=== PATIENT | female | born 1930 | race Caucasian/White ===

== ENCOUNTER 2017-09-10 12:43 | Inpatient (IN) | payer OTHER ==
[~2017-09-10] VITALS: Ht 154.9 cm; Wt 77.1 kg
[~2017-09-10 12:43] MED LIST: ACETAMINOPHEN325 M1 PO; ALEVE220 MG PO; ASPIRIN CHILDRE81 MG PO; AUGMENTIN 500M500 MG PO; COZAAR 25MG TAB25 MG PO; HYDRODIURIL 112.5 M1 PO; IRON324 MG PO; LEVOTHYROXINE0.1 M1 PO; MAGOX 400241.3 MG PO; MEVACOR20 MG PO; MIRALAX17 GM PO; Senokot S PO
[2017-09-10 13:54] LABS: ABSOLUTE BASOPHIL COUNT 0 /CUMM (0.0-0.2); ABSOLUTE EOSINOPHIL COUNT 0.1 /CUMM (0.0-0.7); ABSOLUTE GRANULOCYTE CT 7.5 /CUMM (1.4-6.5); ABSOLUTE LYMPH COUNT 1.4 /CUMM (1.2-3.4); ABSOLUTE MONOCYTE COUNT 0.4 /CUMM (0.10-0.60); BASOPHIL % 0.4 % (0.0-2.0); EOSINOPHIL % 0.8 % (0-5); GRANULOCYTE % 79.6 % (42.2-75.2); HEMATOCRIT 42.2 % (37-47); MEAN CORPUSCULAR HGB 32.2 PG (27.0-31.0); MEAN CORPUSCULAR HGB CONC 33.8 G/DL (33.0-37.0); MEAN CORPUSCULAR VOLUME 95.1 FL (81.0-99.0); MEAN PLATELET VOLUME 9.4 FL (7.4-10.4); PLATELET COUNT 197 /CUMM (130-400); RBC DISTRIBUTION WIDTH 13.8 % (11.5-14.5); RED BLOOD CELL CT 4.44 /CUMM (4.20-5.40); WHITE BLOOD CELL COUNT 9.4 /CUMM (4.8-10.8)
[2017-09-10 14:00] LABS: PT 11.8 SEC (9.4-12.5); PTT 31 SEC (25-37)
--- NOTE | 2017-09-10 14:03 | RADIOLOGY REPORT ---
EXAMINATION: XR PORTABLE CHEST CLINICAL INFORMATION: Shortness of breath. COMPARISON: Chest radiograph 03/12/2010. TECHNIQUE: Portable frontal view of the chest was obtained. FINDINGS: Mild prominence of the pulmonary interstitium bilaterally may represent sequela of minimal chronic lung disease. There is minimal reticular airspace opacity in the right lung base which is nonspecific. No pleural effusion. Cardiomediastinal silhouette and pulmonary vasculature are within normal limits. No acute osseous finding. IMPRESSION: Normal right basilar airspace opacity which is nonspecific. This may be artifactual given underpenetration or possibly represent early infiltrate.
--- NOTE | 2017-09-10 14:18 | ED DYSPNEA/ASTHMA COMPLAINT ---
History of Present Illness General Chief Complaint: Dyspnea (COPD, CHF, Other) Stated Complaint: BIBA SOB Source: patient Exam Limitations: no limitations Vital Signs & Intake/Output Vital Signs & Intake/Output Vital Signs Date Time Temp Pulse Resp B/P B/P Pulse O2 O2 Flow FiO2 Mean Ox Delivery Rate 09/10 1631 96.3 106 22 173/94 95 Nasal 1.0L Cannula 09/10 1445 96.1 100 18 173/81 92 Nasal 2.0L Cannula 09/10 1343 96 Nasal 1.0L Cannula 09/10 1252 96.4 103 25 152/92 98 Room Air Room Air Allergies Coded Allergies: linaclotide (From LINZESS) (Severe, WHEEZING, SOB 09/10/17) tiotropium (UNKNOWN 09/10/17) Reconcile Medications Albuterol Sulfate (Proair Hfa) 90 MCG HFA.AER.AD 2 PUF INH Q4-6 PRN PRN RESP. (Reported) Aspirin (Ecotrin*) 81 MG TABLET.DR 1 TAB PO DAILY HEART/BLOOD (Reported) Escitalopram Oxalate 10 MG TABLET 1 TAB PO DAILY MENTAL HEALTH (Reported) Hydrochlorothiazide 12.5 MG CAPSULE 1 CAP PO DAILY DIURETIC/BP (Reported) Levothyroxine Sodium 100 MCG TABLET 1 TAB PO DAILY THYROID (Reported) Losartan Potassium 25 MG TABLET 1 TAB PO DAILY BP (Reported) Lovastatin 20 MG TABLET 1 TAB PO DAILY CHOLESTEROL (Reported) Multiple Vitamin (Multivitamins) 1 EACH TABLET 1 TAB PO DAILY SUPPLEMENT ( Reported) Triage Note: PT BIBA FROM HOME FOR INCREASED SOB SINCE EARLY THIS MORNING. PT FELT GREAT YESTERDAY, TOOK A LINZESS PILL LAST NIGHT FOR THE FIRST TIME AND SOB STARTED AROUND 0400, SUBSIDED AND THEN STARTED AGAIN APPROX 2-3 HOURS AGO AFTER PT ATE BREAKFAST. PT GIVEN DUO NEB EN ROUTE. Triage Nurses Notes Reviewed? yes Onset: Abrupt Duration: hour(s):, constant, getting worse Timing: recent history Severity: mild HPI: 86-year-old female comes into the emergency room for shortness of breath. Symptoms began around 4 AM this morning. She came in by ambulance. He denies any fever chills. Associated cough. She started a new medication yesterday. She denies any chest pain. Denies any fever or vomiting. She has been sick with some upper rest of her symptoms for a couple weeks but those symptoms have gotten better. She denies any vomiting. Denies any other associated symptoms. (Gavin Youssef) Past History Travel History Traveled to [place] past 21 day No Medical History Any Pertinent Medical History? see below for history Cardiovascular: hypertension, hyperlipidemia Respiratory: COPD Gastrointestinal: GERD Endocrine: HYPOTHYROID Blood Disorders: NONE Cancer(s): NONE History of MRSA: No History of VRE: No History of CDIFF: Yes Pneumonia Vaccine: 02/19/14 Influenza Vaccine: 02/19/14 Surgical History Surgical History: non-contributory Psychosocial History Who do you live with Patient/Self Services at Home None What is your primary language Wolof Tobacco Use: Quit >30 days ago Family History Family History, If Any: MOTHER (CVA and DM). FATHER (CHF, renal stones and gall stones). SON (DM and SD at 48 years). Hx Contributory? No (Gavin Youssef) Review of Systems Review of Systems Constitutional: Reports: see HPI. EENTM: Reports: no symptoms. Respiratory: Reports: see HPI. Cardiovascular: Reports: no symptoms. GI: Reports: no symptoms. Genitourinary: Reports: no symptoms. Musculoskeletal: Reports: no symptoms. Skin: Reports: no symptoms. Neurological/Psychological: Reports: no symptoms. Hematologic/Endocrine: Reports: no symptoms. Immunologic/Allergic: Reports: no symptoms. All Other Systems: Reviewed and Negative (Gavin Youssef) Physical Exam Physical Exam General Appearance: alert, awake, moderate distress Head: atraumatic Eyes: Bilateral: normal appearance. Ears, Nose, Throat: normal ENT inspection, hearing grossly normal Neck: normal inspection Respiratory: decreased breath sounds, rhonchi, wheezing Cardiovascular: regular rate/rhythm, tachycardia Gastrointestinal: soft Extremities: normal inspection Neurologic/Psych: awake, alert, normal gait, normal mood/affect Skin: intact, normal color Core Measures ACS in differential dx? No CVA/TIA Diagnosis No Sepsis Present: No Sepsis Focused Exam Completed? No (Gavin Youssef) Progress Differential Diagnosis: asthma, AMI, bronchitis, costochondritis, CHF, COPD, musculoskeletal pain, pericarditis, pulmonary embolism, pneumonia, pneumothorax, rib fracture, unstable angina Plan of Care: Orders Procedure Date/time Status Heart Healthy Diet 09/11 B Active Regular Diet 09/10 D Complete ED Holding Orders 09/10 1611 Active Vital Signs 09/10 1611 Active Code Status 09/10 1611 Active Patient Data 09/10 1609 Active Admit to inpatient 09/10 1607 Active BLOOD CULTURE 09/10 1419 Active Telemetry/Youth Counselor 09/10 1258 Active TROPONIN LEVEL 09/10 1258 Complete PARTIAL THROMBOPLASTIN TIME 09/10 1258 Complete PROTHROMBIN TIME 09/10 1258 Complete COMPREHENSIVE METABOLIC PANEL 09/10 1258 Complete CBC WITHOUT DIFFERENTIAL 09/10 1258 Complete B-TYPE NATRIURETIC PEP (BNP) 09/10 1258 Complete EKG 09/10 1258 Active Intake & Output 09/10 1249 Active Current Medications Sig/Yohannes Start time Last Medication Dose Stop Time Status Admin Magnesium Sulfate 1 GM ONCE ONE 09/10 1345 AC 09/10 (Mag Sulfate in D5) 09/10 1744 1402 Dextrose/Water 100 ML (D5W) Laboratory Tests 09/10/17 1340: Anion Gap 7, Estimated GFR > 60, BUN/Creatinine Ratio 44.0 H, Glucose 107 H, Calcium 9.2, Total Bilirubin 0.9, AST 28, ALT 26, Alkaline Phosphatase 59, Troponin I < 0.01, Kqa-A-Zgwcbbqbzsv Pept 552 H, Total Protein 7.2, Albumin 3.9 , Globulin 3.3, Albumin/Globulin Ratio 1.2, PT 11.8, INR 1.08, APTT 31, CBC w Diff NO MAN DIFF REQ, RBC 4.44, MCV 95.1, MCH 32.2 H, MCHC 33.8, RDW 13.8, MPV 9.4, Gran % 79.6 H, Lymphocytes % 15.0 L, Monocytes % 4.2, Eosinophils % 0.8, Basophils % 0.4, Absolute Granulocytes 7.5 H, Absolute Lymphocytes 1.4, Absolute Monocytes 0.4, Absolute Eosinophils 0.1, Absolute Basophils 0 Microbiology 09/10 1442 BLOOD: Blood Culture - RECD 09/10 1420 BLOOD: Blood Culture - RECD Diagnostic Imaging: Viewed by Me: Radiology Read. Discussed w/RAD: Radiology Read. Radiology Impression: PATIENT: SEDRICK EM PRESENT AGE: 86 PATIENT ACCOUNT NO: [id number] : [birth year] LOCATION: [facility] ORDERING PHYSICIAN: Gavin NUR SERVICE DATE: 09/10/17-1604 EXAM TYPE: RAD - XRY-PORTABLE CHEST XRAY EXAMINATION: XR PORTABLE CHEST CLINICAL INFORMATION: Shortness of breath. COMPARISON: Chest radiograph 03/12/2010. TECHNIQUE: Portable frontal view of the chest was obtained. FINDINGS: Mild prominence of the pulmonary interstitium bilaterally may represent sequela of minimal chronic lung disease. There is minimal reticular airspace opacity in the right lung base which is nonspecific. No pleural effusion. Cardiomediastinal silhouette and pulmonary vasculature are within normal limits. No acute osseous finding. IMPRESSION: Normal right basilar airspace opacity which is nonspecific. This may be artifactual given underpenetration or possibly represent early infiltrate. DICTATED BY: Domo Allred MD DATE/TIME DICTATED:09/10/171357 ROW BOSS HOEING:JOSE ENRIQUE DATE/TIME TRANSCRIBED:09/10/171357 CONFIDENTIAL, DO NOT COPY WITHOUT APPROPRIATE AUTHORIZATION. <Electronically signed in Other Vendor System> SIGNED BY: Domo Allred MD 09/10/17 1400 Initial ED EKG: normal sinus rhythm, rate (106) (Gavin Youssef) Departure Departure Disposition: STILL A PATIENT Condition: Stable Clinical Impression Primary Impression: Pneumonia Secondary Impressions: Bronchitis Referrals: Saba HATFIELD,Alex Barrientos (PCP/Family) Departure Forms: Customer Survey General Discharge Information Admission Note Spoke With: Wilver Mckinnon MD Documentation of Exam: Documentation of any treatments & extenuating circumstances including Concerns Regarding Discharge (functional status, medication knowledge or non-compliance, living conditions, etc.) that warrant an admission rather than observation: Patient will require IV steroids. Supplemental oxygen. Respiratory care. Breathing treatments. Patient was very tachypneic and short of breath upon arrival. Questionable pneumonia. IV antibiotics. Medically not safe for discharge. (Gavin Youssef) Admission Note Documentation of Exam: Documentation of any treatments & extenuating circumstances including Concerns Regarding Discharge (functional status, medication knowledge or non-compliance, living conditions, etc.) that warrant an admission rather than observation: PA/ACADEMIC SUPPORT SPECIALIST Co-Sign Statement Statement: ED Attending supervision documentation- [X] I saw and evaluated the patient. I have also reviewed all the pertinent lab results and diagnostic results. I agree with the findings and the plan of care as documented in the PA's/ACADEMIC SUPPORT SPECIALIST's documentation. [X] I have reviewed the ED Record and agree with the PA's/ACADEMIC SUPPORT SPECIALIST's documentation. [] Additions or exceptions (if any) to the PAs/ACADEMIC SUPPORT SPECIALIST's note and plan are summarized below: [Patient appears in respiratory distress. Questionable pneumonia seen on chest x-ray. Patient will need IV antibiotics, nebulizers, pulmonary consultation] (Alvarado HATFIELD,Francisco Adair) Critical Care Note Critical Care Note Critical Care Time: non-applicable (Jorge NUR,Gavin)
[2017-09-10] MEDS ORDERED: PROAIR HFA8.5 GM INH (16:13)
[2017-09-10] MEDS ORDERED: LOVASTATIN20 M1 PO (16:13)
[2017-09-10] MEDS ORDERED: LEVOTHYROXINE100 MC1 PO (16:13)
[2017-09-10] MEDS ORDERED: MULTIVITAMINS1 EAC9 PO (16:14)
[2017-09-10] MEDS ORDERED: ASPIRIN EC81 M1 PO (16:14)
[2017-09-10] MEDS ORDERED: ESCITALOPRAM OX10 MG PO (16:14)
[2017-09-10] MEDS ORDERED: LOSARTAN POTASS25 M1 PO (16:14)
[2017-09-10] MEDS ORDERED: HYDROCHLOROTH12.5 M3 PO (16:14)
--- NOTE | 2017-09-10 16:20 | History & Physical ---
Christopher HATFIELD,[facility] 09/10/17 1619: General Information and HPI Statement: I have seen and personally examined SEDRICK EM and documented this H&P. The patient is a 86 year old F who presented with a patient stated chief complaint of [SOB]. History of Present Illness: 86-year-old female with a past medical history of hypertension, hyperlipidemia, COPD, GERD, hypothyroidism, and IBS presenting for shortness breath. The patient's son states that the symptoms started several weeks ago when the patient had signs of a upper respiratory infection. The son states that the patient went to the PCP on the and was given a Z-Harish and poor air. He states that the symptoms occurred 3-4 days for the PCP visit. He states that she got a flu test which was negative and she was diagnosed with a cold. He states that the patient was fine yesterday. States that the patient went out shopping and had dinner family without any issues. The son states that the symptoms started yesterday when the patient was started on a trial of Lanzess for constipation. He states that the patient had several bowel movements. He states that after taking the medication the patient began having symptoms of GERD which then led to an acute reemergence of her shortness of breath. The shortness of breath is associated with cough. The patient denies any fevers or chills. Allergies/Medications Allergies: Coded Allergies: linaclotide (From LINZESS) (Severe, WHEEZING, SOB 09/10/17) tiotropium (UNKNOWN 09/10/17) Home Med list Albuterol Sulfate (Proair Hfa) 90 MCG HFA.AER.AD 2 PUF INH Q4-6 PRN PRN RESP. (Reported) Aspirin (Ecotrin*) 81 MG TABLET.DR 1 TAB PO DAILY HEART/BLOOD (Reported) Escitalopram Oxalate 10 MG TABLET 1 TAB PO DAILY MENTAL HEALTH (Reported) Hydrochlorothiazide 12.5 MG CAPSULE 1 CAP PO DAILY DIURETIC/BP (Reported) Levothyroxine Sodium 100 MCG TABLET 1 TAB PO DAILY THYROID (Reported) Losartan Potassium 25 MG TABLET 1 TAB PO DAILY BP (Reported) Lovastatin 20 MG TABLET 1 TAB PO DAILY CHOLESTEROL (Reported) Multiple Vitamin (Multivitamins) 1 EACH TABLET 1 TAB PO DAILY SUPPLEMENT ( Reported) Past History Travel History Traveled to [place] past 21 day No Medical History Cardiovascular: hypertension, hyperlipidemia Respiratory: COPD Gastrointestinal: GERD Endocrine: HYPOTHYROID Blood Disorders: NONE Cancer(s): NONE History of MRSA: No History of VRE: No History of CDIFF: Yes Pneumonia Vaccine: 02/19/14 Influenza Vaccine: 02/19/14 Surgical History Surgical History: non-contributory Past Family/Social History Family History Relations & Conditions if any MOTHER (CVA and DM). FATHER (CHF, renal stones and gall stones). SON (DM and [place] at 48 years). Psychosocial History Services at Home: None Review of Systems Review of Systems Constitutional: Reports: see HPI. Exam & Diagnostic Data Last 24 Hrs of Vital Signs/I&O Vital Signs Date Time Temp Pulse Resp B/P B/P Pulse O2 O2 Flow FiO2 Mean Ox Delivery Rate 09/10 2246 97.8 90 20 148/50 96 Nasal Cannula 09/10 2057 Nasal 2.0L Cannula 09/10 1835 98 Nasal 2.0L Cannula 09/10 1754 98.6 100 22 150/80 96 Nasal Cannula 09/10 1631 96.3 106 22 173/94 95 Nasal 1.0L Cannula 09/10 1445 96.1 100 18 173/81 92 Nasal 2.0L Cannula 09/10 1343 96 Nasal 1.0L Cannula 09/10 1252 96.4 103 25 152/92 98 Room Air Room Air Intake & Output 09/10 1600 09/10 0800 09/10 0000 Intake Total 0 Output Total Balance 0 Intake, Oral 0 Physical Exam General Appearance Alert, Oriented X3, Cooperative, No Acute Distress, appears fatigued HEENT reddish/purplish ?circular pattern around eyes b/l Cardiovascular Regular Rate, Normal S1, Normal S2 Lungs decreased breath sounds bilaterally. Inspiratory crackles bilaterally in mid and lower base. Abdomen Normal Bowel Sounds, Soft, No Tenderness Extremities 2+ radial pulses Last 24 Hrs of Labs/Pawan: Laboratory Tests 09/10/17 2010: Troponin I 0.05 09/10/17 2010: Lactic Acid 1.5 09/10/17 1340: Anion Gap 7, Estimated GFR > 60, BUN/Creatinine Ratio 44.0 H, Glucose 107 H, Calcium 9.2, Total Bilirubin 0.9, AST 28, ALT 26, Alkaline Phosphatase 59, Troponin I < 0.01, Pul-E-Vliumoopqnz Pept 552 H, Total Protein 7.2, Albumin 3.9 , Globulin 3.3, Albumin/Globulin Ratio 1.2, PT 11.8, INR 1.08, APTT 31, CBC w Diff NO MAN DIFF REQ, RBC 4.44, MCV 95.1, MCH 32.2 H, MCHC 33.8, RDW 13.8, MPV 9.4, Gran % 79.6 H, Lymphocytes % 15.0 L, Monocytes % 4.2, Eosinophils % 0.8, Basophils % 0.4, Absolute Granulocytes 7.5 H, Absolute Lymphocytes 1.4, Absolute Monocytes 0.4, Absolute Eosinophils 0.1, Absolute Basophils 0 Microbiology 09/10 1900 URINE ROUT: Legionella Antigen - COLB 09/10 1900 URINE ROUT: Streptococcus pneumoniae Antigen (M - COLB 09/10 144 BLOOD: Blood Culture - RECD 09/11 1419 BLOOD: Blood Culture - RECD Assessment/Plan Assessment: 86-year-old female with a past medical history of hypertension, hyperlipidemia, COPD, GERD, hypothyroidism, and IBS presenting for shortness breath. #Shortness of breath secondary to pneumonia and bronchitis/COPD Patient received ceftriaxone and azithromycin in the ED. Also received IV Solu-Medrol in the ED Chest x-ray:right basilar airspace opacity which is nonspecific. This may be artifactual given underpenetration or possibly represent early infiltrate WBC 9.4 Lactic acid 1.5 Troponin 0.01, .05 ProBNP 552 -f/u trop ekg x3 -f/u CT chest -f/u UA and urinary antigens -Continue ceftriaxone and azithromycin -Continue TRC nebs -Consider echo if no improvement #HTN -cont losartan, hydro-chlorothiazide, #Chronic medical problems -Continue aspirin, levothyroxine, escitalopram, Protonix, atorvastatin #FULL CODE #DVT prophylaxisLovenox As Ranked By This Provider Problem List: 1. Bronchitis 2. Pneumonia Core Measures/Misc (02/05) Acute Coronary Syndrome ACS Diagnosis: No Congestive Heart Failure Congestive Heart Failure Diagnosis No Cerebrovascular Accident CVA/TIA Diagnosis: No VTE (View Protocol) VTE Risk Factors Acute Medical Illness No Mechanical VTE Prophylaxis d/t Other No VTE Pharm Prophylaxis d/t NA PharmProphylax ordered Sepsis (View protocol) Sepsis Present: No Wilver Mckinnon 09/10/17 1716: Attending MD Review Statement Attending Statement Attending MD Statement: examined this patient, discuss w/resident/PA/DEVELOPMENT INTERN, agreed w/resident/PA/DEVELOPMENT INTERN, discussed with family, reviewed EMR data (avail), discussed with nursing, discussed with case mgmt, reviewed images, amended to note Attending Assessment/Plan: 86-year-old female comes for shortness of breath BIBEMS. Symptoms started 4 AM this morning. She has been sick with some upper rest of her symptoms for a couple weeks. She denies any chest pain. Denies any fever or vomiting. Patient is on oxygen supplementation. Vitals with borderline tachycardia and elevated bp. Labs with probnp 500, Cr wnl, WBC 9, h/h stable. LFTs wnl. Trop x1 negative Chest xray with early inflitrates. Patient being admitted for community acquired pneumonia and respiratroy insufficiency. Patient started on iv antibiotics, oxygen supplementaiton, obtain ct chest, TRCs. Serial cardiac enzymes. Lactic acid. Consider ECHO if no improvement. Resume bp meds to control bp. gi/dvt prophyalxis [facility]135: Resident Review Statement Resident Statement: examined this patient, discussed with leadership program intern, agreed with leadership program intern Other Findings: The patient is an 86-year-old woman with a past medical history of hypertension, hyperlipidemia, COPD diagnosed in the 1960s, GERD, hypothyroidism, and IBS presenting with sudden onset of shortness breath since last night. Prior to current symptoms patient had an URTI 2 weeks ago and was treated with a z pack and proair inhaler on 09/01 by her PCP with negative flu test. Her symptoms improved but she developed sudden onset of shortness of breath last night after taking linzess for constipation. She also notes severe wheezing. She denied fever, chills, chest pain, palpitations, nausea or vomitting. Her shortness of breath improved after nebulizer treatment in the ER. Physical exam significant for bilateral scattered wheeze and reduced air entry in chest. No crackles heard. Labs show normal white count but her chest x ray shows right lung base questionable consolidation. Overall, her symptoms are consistent with an atypical or developing pneumonia or acute bronchitis. Problem list 1. Shortness of breath secondary to probable atypical pneumonia 2. Acute bronchitis 3. Hypertension 4. Hypothyroidism Plan * Admit to general medicine * Continue IV ceftriaxone 1 g daily and IV azithromycin 500 mg daily * Follow up blood cultures * Sputum culture * Urine legionella and strep pneumo antigen * Would pursue a non contrast CT chest to investigate early pneumonia changes * Monitor vital signs closely * TRC evaluation for nebulizer therapy (Note patient had a reaction to spiriva in the past) * Consider continuing IV solumedrol in the AM. Patient received 125 mg once in the ER. * Serial EKG and troponin to rule out ACS * If no improvement in symptoms will consider echocardiogram and cardiology evaluation * Continue home meds for HTN with losartan and HCTZ * Continue synthroid 0.1 mg daily * GI prophylaxis with IV protonix 40 mg daily * DVT prophylaxis with SC lovenox * Patient is full code
[2017-09-10 17:54] VITALS: BP 150/80
[2017-09-10 22:46] VITALS: BP 148/50
[2017-09-11 02:00] VITALS: BP 128/80
[2017-09-11 02:32] LABS: ABSOLUTE BASOPHIL COUNT 0 /CUMM (0.0-0.2); ABSOLUTE EOSINOPHIL COUNT 0 /CUMM (0.0-0.7); ABSOLUTE GRANULOCYTE CT 5.7 /CUMM (1.4-6.5); ABSOLUTE LYMPH COUNT 0.7 /CUMM (1.2-3.4); ABSOLUTE MONOCYTE COUNT 0.3 /CUMM (0.10-0.60); BASOPHIL % 0.7 % (0.0-2.0); EOSINOPHIL % 0 % (0-5); HEMATOCRIT 39.3 % (37-47); MEAN CORPUSCULAR HGB 32.1 PG (27.0-31.0); MEAN CORPUSCULAR HGB CONC 33.8 G/DL (33.0-37.0); MEAN PLATELET VOLUME 9.5 FL (7.4-10.4); PLATELET COUNT 190 /CUMM (130-400); RBC DISTRIBUTION WIDTH 13.4 % (11.5-14.5); RED BLOOD CELL CT 4.14 /CUMM (4.20-5.40); WHITE BLOOD CELL COUNT 6.8 /CUMM (4.8-10.8)
[2017-09-11 06:32] VITALS: BP 150/88
--- NOTE | 2017-09-11 08:13 | CT SCAN REPORT ---
EXAMINATION: CT CHEST WITHOUT CONTRAST CLINICAL INFORMATION: Cough, wheeze and sudden shortness of breath. COMPARISON: Chest x-ray same day and CT abdomen pelvis 06/08/2014 TECHNIQUE: Multidetector volumetric CT imaging of the chest was done. Axial MIP volume rendering provided. Sagittal and coronal reformatted images were obtained. DLP: 394 mGy-cm FINDINGS: The heart is normal in size. Coronary artery calcifications are present. No pericardial effusion. Thoracic aorta is normal in caliber and demonstrates mild to moderate atherosclerotic disease. Central airways are patent. Lungs are well aerated. No lobar consolidation. Similar scarring of the right middle lobe and right lung base. Mild emphysematous changes with a suspected approximately 4.5 cm bleb within the anterior right middle lobe which was incompletely visualized on CT abdomen pelvis imaging from May 2014. A few punctate nodules of the lung bases are stable. Visualized portion of the upper abdomen are grossly unremarkable. Diffuse degenerative changes of the spine. IMPRESSION: 1. No lobar consolidation or pleural effusion. 2. Mild emphysema with prominent anterior right middle lobe bleb.
--- NOTE | 2017-09-11 10:16 | PN- Housestaff ---
Subjective Follow-up For: Pneumonia COPD Subjective: No acute events overnight. Patient states that she had some shortness of breath which improved after nebulizers this morning. Review of Systems Constitutional: Reports: see HPI. Objective Last 24 Hrs of Vital Signs/I&O Vital Signs Date Time Temp Pulse Resp B/P B/P Pulse O2 O2 Flow FiO2 Mean Ox Delivery Rate 09/11 1011 98 Nasal 2.0L Cannula 09/11 0827 98.4 98 22 150/88 09/11 0800 98 Nasal 2.0L Cannula 09/11 0632 98.4 98 22 150/88 94 Nasal Cannula 09/11 0542 97 Nasal 2.0L Cannula 09/11 0200 98.1 74 18 128/80 98 Room Air 09/11 0000 Nasal 2.0L Cannula 09/10 2246 97.8 90 20 148/50 96 Nasal Cannula 09/10 2057 Nasal 2.0L Cannula 09/10 1835 98 Nasal 2.0L Cannula 09/10 1754 98.6 100 22 150/80 96 Nasal Cannula 09/10 1631 96.3 106 22 173/94 95 Nasal 1.0L Cannula 09/10 1445 96.1 100 18 173/81 92 Nasal 2.0L Cannula 09/10 1343 96 Nasal 1.0L Cannula Intake & Output 09/11 1600 09/11 0800 09/11 0000 Intake Total 100 220 Output Total 100 Balance -100 100 220 Intake, IV 20 Intake, Oral 100 200 Number 0 Bowel Movements Output, Urine 100 Patient 171 lb 180 lb Weight Weight Bed scale Reported by Patient Measurement Method Physical Exam General Appearance: Alert, Oriented X3, Cooperative Cardiovascular: Normal S1, Normal S2, tachycardia Lungs: decreased breath sounds, inspiratory wheezing Abdomen: Normal Bowel Sounds, Soft, No Tenderness Vascular: 2+ radial pulses Current Medications: Current Medications Sig/Yohannes Start time Last Medication Dose Route Stop Time Status Admin Albuterol Sulfate 3 ML TID 09/11 899 AC 09/11 INH 0950 Aspirin Buffered 81 MG DAILY 09/11 0900 AC 09/11 PO 0827 Atorvastatin Calcium 5 MG 1700 09/10 1800 AC 09/10 PO 1937 Azithromycin 500 MG DAILY@1530 09/11 1530 AC Sodium Chloride 250 ML IV Azithromycin 0 .STK-MED ONE 09/10 1713 DC PO Azithromycin 500 MG ONCE ONE 09/10 1415 DC 09/10 Dextrose/Water 250 ML IV 09/10 1514 1546 Ceftriaxone Sodium 1,000 MG DAILY@1515 09/11 1515 AC IV Ceftriaxone Sodium 0 .STK-MED ONE 09/10 1459 DC .ROUTE Ceftriaxone Sodium 1,000 MG ONCE ONE 09/10 1415 DC 09/10 IV 09/10 1416 1514 Diphenhydramine HCl 0 .STK-MED ONE 09/10 1311 DC .ROUTE Enoxaparin Sodium 40 MG DAILY 09/10 1814 AC 09/11 SC 0827 Escitalopram Oxalate 10 MG AT BEDTIME 09/10 2100 AC 09/10 PO 2144 Hydrochlorothiazide 12.5 MG DAILY 09/11 0900 AC 09/11 PO 0826 Levothyroxine Sodium 0.1 MG DAILY AC 09/11 0700 AC 09/11 PO 0640 Losartan Potassium 25 MG DAILY 09/11 0900 AC 09/11 PO 0827 Magnesium Sulfate 1 GM ONCE ONE 09/10 1345 DC 09/10 Dextrose/Water 100 ML IV 09/10 1744 1402 Methylprednisolone 40 MG Q12 09/11 0900 AC 09/11 IV 1016 Methylprednisolone 0 .STK-MED ONE 09/10 1312 DC .ROUTE Metronidazole 0 .STK-MED ONE 09/10 1713 DC PO Multivitamins 1 TAB DAILY 09/11 0900 AC 09/11 Therapeutic PO 0826 Omeprazole 20 MG DAILY AC 09/10 1830 DC PO Pantoprazole Sodium 40 MG DAILY 09/10 1945 AC 09/11 IV 0827 Last 24 Hrs of Lab/Pawan Results Last 24 Hrs of Labs/Mics: Laboratory Tests 09/11/17 0925: Troponin I 0.05 09/11/17 0920: Urine Color YEL, Urine Clarity HAZY H, Urine pH 6.0, Ur Specific [place] 1.025, Urine Protein 30 H, Urine Ketones NEG, Urine Nitrite NEG, Urine Bilirubin NEG, Urine Urobilinogen 0.2, Ur Leukocyte Esterase NEG, Ur Microscopic SEDIMENT EXAMINED, Urine RBC 1-3, Urine WBC 3-5 H, Ur Epithelial Cells PACKD H, Urine Bacteria RARE H, Hyaline Casts 1-3 H, Granular Casts 1-3 H, Urine Mucus FEW, Urine Hemoglobin NEG, Urine Glucose NEG 09/11/17 0200: Anion Gap 6, Estimated GFR > 60, BUN/Creatinine Ratio 30.0 H, Troponin I 0.06, CBC w Diff MAN DIFF ORDERED, RBC 4.14 L, MCV 95.0, MCH 32.1 H, MCHC 33.8, RDW 13.4, MPV 9.5, Gran % 85.0 H, Lymphocytes % 9.7 L, Monocytes % 4.6, Eosinophils % 0, Basophils % 0.7, Absolute Granulocytes 5.7, Segmented Neutrophils 78 H, Band Neutrophils 3, Absolute Lymphocytes 0.7 L, Lymphocytes 16 L, Monocytes 3, Absolute Monocytes 0.3, Absolute Eosinophils 0, Absolute Basophils 0, Platelet Estimate ADEQUATE, Anisocytosis 1+, Stomatocytes 1+ 09/10/17 2010: Troponin I 0.05 09/10/17 2010: Lactic Acid 1.5 09/10/17 1340: Anion Gap 7, Estimated GFR > 60, BUN/Creatinine Ratio 44.0 H, Glucose 107 H, Calcium 9.2, Total Bilirubin 0.9, AST 28, ALT 26, Alkaline Phosphatase 59, Troponin I < 0.01, [id number]-[id number] Pept 552 H, Total Protein 7.2, Albumin 3.9 , Globulin 3.3, Albumin/Globulin Ratio 1.2, PT 11.8, INR 1.08, APTT 31, CBC w Diff NO MAN DIFF REQ, RBC 4.44, MCV 95.1, MCH 32.2 H, MCHC 33.8, RDW 13.8, MPV 9.4, Gran % 79.6 H, Lymphocytes % 15.0 L, Monocytes % 4.2, Eosinophils % 0.8, Basophils % 0.4, Absolute Granulocytes 7.5 H, Absolute Lymphocytes 1.4, Absolute Monocytes 0.4, Absolute Eosinophils 0.1, Absolute Basophils 0 Microbiology 09/12 919 URINE ROUT: Legionella Antigen - COMP 09/12 919 URINE ROUT: Streptococcus pneumoniae Antigen (M - COMP 09/11 07 LOWER RESP: Respiratory Culture - COLB 09/11 07 LOWER RESP: Gram Stain - COLB 09/10 1442 BLOOD: Blood Culture - RECD 09/10 142 BLOOD: Blood Culture - RECD Assessment/Plan Assessment: 86-year-old female with a past medical history of hypertension, hyperlipidemia, COPD, GERD, hypothyroidism, and IBS presenting for shortness breath. #Shortness of breath secondary to pneumonia and bronchitis/COPD Patient received ceftriaxone and azithromycin, IV Solu-Medrol in ED Chest x-ray:right basilar airspace opacity which is nonspecific. may be artifactual or possibly represent early infiltrate WBC 9.4 -> 6.8 Lactic acid 1.5 Troponin 0.01, .05, .06, .05 ProBNP 552 flu, urinary antigens negative CT chest: emphysema with prominent anterior right middle lobe bleb -f/u echo -Follow up speech and swallow eval for possible aspiration and history of dysphasia -Continue IV steroids every 12 -Start chest PT -Continue ceftriaxone and azithromycin. STOP if cx negative tomorrow -Continue TRC nebs -Consider echo if no improvement #HTN -cont losartan, hydro-chlorothiazide, #Chronic medical problems -Continue aspirin, levothyroxine, escitalopram, Protonix, atorvastatin #FULL CODE #DVT prophylaxisLovenox Problem List: 1. Pneumonia 2. Bronchitis Pain Ratin Pain Location: none Pain Goal: Pain 4 or less Pain Plan: pathway Tomorrow's Labs & Rationales: none
--- NOTE | 2017-09-11 11:06 | PN- Att Addend ---
Attending Addendum Attending Brief Note Patient seen and examined, feels better overall. Breathing has improved. Did mention that she has some difficulty swallowing. Vital Signs Date Time Temp Pulse Resp B/P B/P Pulse O2 O2 Flow FiO2 Mean Ox Delivery Rate 09/11 1011 98 Nasal 2.0L Cannula 09/11 0827 98.4 98 22 150/88 09/11 0800 98 Nasal 2.0L Cannula 09/11 0632 98.4 98 22 150/88 94 Nasal Cannula 09/11 0542 97 Nasal 2.0L Cannula 09/11 0200 98.1 74 18 128/80 98 Room Air 09/11 0000 Nasal 2.0L Cannula 09/10 2246 97.8 90 20 148/50 96 Nasal Cannula 09/10 2057 Nasal 2.0L Cannula 09/10 1835 98 Nasal 2.0L Cannula 09/10 1754 98.6 100 22 150/80 96 Nasal Cannula 09/10 1631 96.3 106 22 173/94 95 Nasal 1.0L Cannula 09/10 1445 96.1 100 18 173/81 92 Nasal 2.0L Cannula 09/10 1343 96 Nasal 1.0L Cannula 09/10 1252 96.4 103 25 152/92 98 Room Air Room Air on exam; aox3, nad. cv: s1,s2, rrr resp; decreased bs overall. abd; soft, nt, bs+ ext; no edema Laboratory Tests 09/11 09/11 0925 0920 Chemistry Troponin I Pending Urines Urine Color (YEL,AMB,STR) YEL Urine Clarity (CLEAR) HAZY H Urine pH (5.0 - 8.0) 6.0 Ur Specific [place] (1.001 - 1.035) 1.025 Urine Protein (NEG,<30 MG/DL) 30 H Urine Ketones (NEG) NEG Urine Nitrite (NEG) NEG Urine Bilirubin (NEG) NEG Urine Urobilinogen (0.1 - 1.0 EU/dl) 0.2 Ur Leukocyte Esterase (NEG) NEG Ur Microscopic SEDIMENT EXAMINED Urine RBC (0 - 5 /HPF) 1-3 Urine WBC (0 - 2 /HPF) 3-5 H Ur Epithelial Cells (NONE,FEW) PACKD H Urine Bacteria (NEG/NONE) RARE H Hyaline Casts (0/LPF) 1-3 H Granular Casts (NONE /LPF) 1-3 H Urine Mucus (FEW,NONE) FEW Urine Hemoglobin (NEG) NEG Urine Glucose (N MG/DL) NEG 09/11 09/10 09/10 0200 2009 2009 Chemistry Sodium (137 - 145 mmol/L) 138 Potassium (3.5 - 5.1 mmol/L) 3.8 Chloride (98 - 107 mmol/L) 97 L Carbon Dioxide (22 - 30 mmol/L) 34 H Anion Gap (5 - 16) 6 BUN (7 - 17 mg/dL) 15 Creatinine (0.5 - 1.0 mg/dL) 0.5 Estimated GFR (>60 ml/min) > 60 BUN/Creatinine Ratio (7 - 25 %) 30.0 H Lactic Acid (0.7 - 2.1 mmol/L) 1.5 Troponin I (< 0.11 ng/ml) 0.06 0.05 Hematology CBC w Diff MAN DIFF ORDERED WBC (4.8 - 10.8 /CUMM) 6.8 RBC (4.20 - 5.40 /CUMM) 4.14 L Hgb (12.0 - 16.0 G/DL) 13.3 Hct (37 - 47 %) 39.3 MCV (81.0 - 99.0 FL) 95.0 MCH (27.0 - 31.0 PG) 32.1 H MCHC (33.0 - 37.0 G/DL) 33.8 RDW (11.5 - 14.5 %) 13.4 Plt Count (130 - 400 /CUMM) 190 MPV (7.4 - 10.4 FL) 9.5 Gran % (42.2 - 75.2 %) 85.0 H Lymphocytes % (20.5 - 51.1 %) 9.7 L Monocytes % (1.7 - 9.3 %) 4.6 Eosinophils % (0 - 5 %) 0 Basophils % (0.0 - 2.0 %) 0.7 Absolute Granulocytes (1.4 - 6.5 /CUMM) 5.7 Segmented Neutrophils (42.2 - 75.2 %) 78 H Band Neutrophils (0.0 - 5.0 %) 3 Absolute Lymphocytes (1.2 - 3.4 /CUMM) 0.7 L Lymphocytes (20.5 - 51.1 %) 16 L Monocytes (1.7 - 9.3 %) 3 Absolute Monocytes (0.10 - 0.60 /CUMM) 0.3 Absolute Eosinophils (0.0 - 0.7 /CUMM) 0 Absolute Basophils (0.0 - 0.2 /CUMM) 0 Platelet Estimate (ADEQUATE) ADEQUATE Anisocytosis 1+ Stomatocytes 1+ 09/10 1340 Chemistry Sodium (137 - 145 mmol/L) 137 Potassium (3.5 - 5.1 mmol/L) 3.9 Chloride (98 - 107 mmol/L) 97 L Carbon Dioxide (22 - 30 mmol/L) 34 H Anion Gap (5 - 16) 7 BUN (7 - 17 mg/dL) 22 H Creatinine (0.5 - 1.0 mg/dL) 0.5 Estimated GFR (>60 ml/min) > 60 BUN/Creatinine Ratio (7 - 25 %) 44.0 H Glucose (65 - 99 mg/dL) 107 H Calcium (8.4 - 10.2 mg/dL) 9.2 Total Bilirubin (0.2 - 1.3 mg/dL) 0.9 AST (14 - 36 U/L) 28 ALT (9 - 52 U/L) 26 Alkaline Phosphatase (<127 U/L) 59 Troponin I (< 0.11 ng/ml) < 0.01 [id number] Pept (<125 pg/mL) 552 H Total Protein (6.3 - 8.2 g/dL) 7.2 Albumin (3.5 - 5.0 g/dL) 3.9 Globulin (1.9 - 4.2 gm/dL) 3.3 Albumin/Globulin Ratio (1.1 - 2.2 %) 1.2 Coagulation PT (9.4 - 12.5 SEC) 11.8 INR (0.90 - 1.19) 1.08 APTT (25 - 37 SEC) 31 Hematology CBC w Diff NO MAN DIFF REQ WBC (4.8 - 10.8 /CUMM) 9.4 RBC (4.20 - 5.40 /CUMM) 4.44 Hgb (12.0 - 16.0 G/DL) 14.3 Hct (37 - 47 %) 42.2 MCV (81.0 - 99.0 FL) 95.1 MCH (27.0 - 31.0 PG) 32.2 H MCHC (33.0 - 37.0 G/DL) 33.8 RDW (11.5 - 14.5 %) 13.8 Plt Count (130 - 400 /CUMM) 197 MPV (7.4 - 10.4 FL) 9.4 Gran % (42.2 - 75.2 %) 79.6 H Lymphocytes % (20.5 - 51.1 %) 15.0 L Monocytes % (1.7 - 9.3 %) 4.2 Eosinophils % (0 - 5 %) 0.8 Basophils % (0.0 - 2.0 %) 0.4 Absolute Granulocytes (1.4 - 6.5 /CUMM) 7.5 H Absolute Lymphocytes (1.2 - 3.4 /CUMM) 1.4 Absolute Monocytes (0.10 - 0.60 /CUMM) 0.4 Absolute Eosinophils (0.0 - 0.7 /CUMM) 0.1 Absolute Basophils (0.0 - 0.2 /CUMM) 0 A/P: 86 y/o F with pmh sig for hypertension, hyperlipidemia, COPD, GERD, hypothyroidism, and IBS admitted with shortness of breath, possible community- acquired pneumonia or bronchitis as well as acute COPD exacerbation. We have added steroids. Patient with swallow evaluation. If all of her cultures remain negative then will consider stopping antibiotics. There is no lobar consolidation on the chest CT. Please get echo. Follow-up troponins. Continue other current meds. DVT px; Lovenox. PT eval.
[2017-09-11 14:28] VITALS: BP 130/64
[2017-09-11 21:54] VITALS: BP 156/86
[2017-09-12 05:39] VITALS: BP 136/72
--- NOTE | 2017-09-12 07:16 | PN- Housestaff ---
Subjective Follow-up For: Bronchitis complicated with COPD. Complaints: on and off cough Subjective: Patient seen and examined at bedside. No overnight events. 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 She slept okay. She denies fever, shortness of breath, chest pain Review of Systems Constitutional: Reports: no symptoms, see HPI. Objective Last 24 Hrs of Vital Signs/I&O Vital Signs Date Time Temp Pulse Resp B/P B/P Pulse O2 O2 Flow FiO2 Mean Ox Delivery Rate 09/12 0919 97.6 73 20 136/72 09/12 0901 98 Room Air Room Air 09/12 0539 97.6 73 20 136/72 93 Room Air 09/11 2154 98.1 84 18 156/86 95 09/11 1900 94 Room Air 09/11 1428 98.5 85 20 130/64 96 09/11 1348 96 Room Air Intake & Output 09/12 1600 09/12 0800 09/12 0000 Intake Total 130 250 Output Total Balance 130 250 Intake, IV 10 10 Intake, Oral 120 240 Patient 169 lb Weight Physical Exam General Appearance: Alert, Oriented X3, Cooperative, No Acute Distress Cardiovascular: Regular Rate, Normal S1, Normal S2, No Murmurs Lungs: left lung base wheezing Abdomen: Normal Bowel Sounds, Soft, No Tenderness Neurological: Normal Speech, Strength at 5/5 X4 Ext, Normal Tone, Sensation Intact Extremities: No Edema Current Medications: Current Medications Sig/Yohannes Start time Last Medication Dose Route Stop Time Status Admin Albuterol Sulfate 3 ML TID 09/11 0900 AC 09/12 INH 1321 Aspirin Buffered 81 MG DAILY 09/11 0900 AC 09/12 PO 0919 Atorvastatin Calcium 5 MG 1700 09/10 1800 AC 09/11 PO 1702 Azithromycin 500 MG DAILY 09/12 0900 AC 09/12 PO 0925 Azithromycin 500 MG DAILY@1530 09/11 1530 DC 09/11 Sodium Chloride 250 ML IV 1406 Ceftriaxone Sodium 1,000 MG DAILY@1515 09/11 1515 DC 09/11 IV 1406 Docusate Sodium 100 MG BID 09/12 1100 AC PO Enoxaparin Sodium 40 MG DAILY 09/10 1814 AC 09/12 SC 0919 Escitalopram Oxalate 10 MG AT BEDTIME 09/10 2100 AC 09/11 PO 2021 Guaifenesin/ 10 ML Q6P PRN 09/12 0845 AC Dextromethorphan PO Hydrochlorothiazide 12.5 MG DAILY 09/11 0900 AC 09/12 PO 0913 Levothyroxine Sodium 0.1 MG DAILY AC 09/11 0700 AC 09/12 PO 0458 Losartan Potassium 25 MG DAILY 09/11 09 AC 09/12 PO 0919 Methylprednisolone 40 MG Q12 09/11 09 DC 09/11 IV 202 Multivitamins 1 TAB DAILY 09/11 09 AC 09/11 Therapeutic PO 08 Omeprazole 40 MG DAILY AC 09/12 0832 AC 09/12 PO 09 Pantoprazole Sodium 40 MG DAILY 09/10 1945 DC 09/11 IV 0827 Patient Medication 1 ED ONE ONE 09/11 1715 DC Teaching ED 09/11 1716 Prednisone 40 MG DAILY 09/12 0900 AC 09/12 PO 09 Senna 187 MG AT BEDTIME 09/12 2100 AC PO Assessment/Plan Assessment: 86-year-old female with a past medical history of hypertension, hyperlipidemia, COPD, GERD, hypothyroidism, and IBS presenting for shortness breath. #Shortness of breath secondary to bronchitis/COPD Patient received ceftriaxone and azithromycin. We will discontinue the same. We will start her on azithromycin 500 daily. We will change IV Solu-Medrol to by mouth prednisone. We will add Robitussin cough syrup. Continue TRC nebulization. -Patient was seen by speech and swallow eval yesterday who recommended mechanical soft diet but the patient refused. Hence she was put on regular diet and explained the risk of aspiration. They also offered barium swallow test but the patient refused yesterday. Today after talking to the son and patient, about the importance of daily and swallow to rule out any risk of aspiration, they both Agreed upon going for barium swallow today. We will check echocardiogram to rule out any other causes of shortness of breath. IV Protonix changed to by mouth omeprazole. #HTN -cont losartan, hydro-chlorothiazide, #Chronic medical problems -Continue aspirin, levothyroxine, escitalopram, Protonix, atorvastatin #FULL CODE #DVT prophylaxisLovenox #Physical therapy to help with discharge disposition. Problem List: 1. Bronchitis Pain Ratin Pain Location: none Pain Goal: Remain pain free Pain Plan: tylenol Tomorrow's Labs & Rationales: none
--- NOTE | 2017-09-12 10:47 | PN- Att Addend ---
Attending Addendum Attending Brief Note Patient seen and examined, offers no complaints. She still has the feeling SOMETHING gets stuck in the throat. She says that she gets anxiety about everything. Housestaff also spoke with her son this morning who confirms that patient is a very anxious person overall. We told her about the barium swallow an echocardiogram this morning. Vital Signs Date Time Temp Pulse Resp B/P B/P Pulse O2 O2 Flow FiO2 Mean Ox Delivery Rate 09/12 0819 97.6 73 20 136/72 09/12 0901 98 Room Air Room Air 09/12 0539 97.6 73 20 136/72 93 Room Air 09/11 2154 98.1 84 18 156/86 95 09/11 1900 94 Room Air 09/11 1428 98.5 85 20 130/64 96 09/11 1348 96 Room Air on exam; aox3, nad. cv: s1,s2, rrr resp; decreased bs overall. abd; soft, nt, bs+ ext; no edema no labs. A/P; 86 y/o F with pmh sig for hypertension, hyperlipidemia, COPD, GERD, hypothyroidism, and IBS admitted with shortness of breath, less likely community -acquired pneumonia. Lizet has acute bronchitis as well as acute COPD exacerbation. Patient to get modified barium swallow. Patient with echocardiogram. Continue prednisone and will start the taper. Continue azithromycin orally. Continue TRC nebs and other current meds. Agree with switching PPI to oral. Patient on Lovenox for DVT prophylaxis. PT eval will be ordered. Will determine what physical therapy will recommend in terms of her disposition.
--- NOTE | 2017-09-12 12:16 | RADIOLOGY REPORT ---
EXAMINATION: XR MODIFIED BARIUM SWALLOW CLINICAL INFORMATION: Signs and symptoms of aspiration. COMPARISON: None. TECHNIQUE: A modified barium swallow was performed with speech pathologist in attendance. Pur?e, honey thick, nectar thick, thin, bread, and cracker consistencies were given to the patient and the swallowing mechanism was observed fluoroscopically with several spot films taken using the last image hold feature. FLUOROSCOPY TIME: 2 minutes 44 seconds. FINDINGS: With all consistencies, the oral phase of swallowing is normal with no difficulty in the oral bolus formation or posterior propagation. With thin liquids, there is trace penetration of contrast seen without sensation. No penetration is observed with puree, honey, nectar, bread, or cracker consistency. No laryngeal or nasopharyngeal aspiration seen. Mild pooling of contrast is noted in the valleculae with all consistencies. IMPRESSION: 1. Silent trace penetration of contrast is seen with thin liquids. 2. Mild pooling of contrast in the valleculae with all consistencies. 3. Speech pathologist assessment issued separately.
[2017-09-12 13:56] VITALS: BP 150/60
[2017-09-12 21:49] VITALS: BP 160/80
[2017-09-13 06:25] VITALS: BP 146/80
--- NOTE | 2017-09-13 07:16 | PN- Housestaff ---
Subjective Follow-up For: BRONCHITIS Complaints: no complaints Subjective: No overnight events. Patient slept well. Denies cough, chest pain, shortness of breath. Review of Systems Constitutional: Reports: no symptoms, see HPI. Objective Last 24 Hrs of Vital Signs/I&O Vital Signs Date Time Temp Pulse Resp B/P B/P Pulse O2 O2 Flow FiO2 Mean Ox Delivery Rate 09/13 0948 98.5 82 20 146/80 09/13 0947 93 Room Air 09/13 0625 98.5 82 20 146/80 92 Room Air 09/13 0000 96 Room Air 09/12 2149 98.9 79 20 160/80 95 Room Air 09/12 1822 95 Room Air Intake & Output 09/13 1600 09/13 0800 09/13 0000 Intake Total 240 300 Output Total 250 Balance 240 50 Intake, Oral 240 300 Output, Urine 250 Patient 170 lb Weight Weight Bed scale Measurement Method Physical Exam General Appearance: Alert, Oriented X3, Cooperative, No Acute Distress Cardiovascular: Regular Rate, Normal S1, Normal S2, No Murmurs Lungs: Clear to Auscultation Abdomen: Normal Bowel Sounds, Soft, No Tenderness, No Hepatospenomegaly Neurological: Strength at 5/5 X4 Ext, Normal Tone, Sensation Intact Extremities: No Edema Current Medications: Current Medications Sig/Yohannes Start time Last Medication Dose Route Stop Time Status Admin Albuterol Sulfate 3 ML TID 09/11 899 DCD 09/13 INH 0944 Aspirin Buffered 81 MG DAILY 09/11 899 DCD 09/13 PO 0948 Atorvastatin Calcium 5 MG 1700 09/10 1800 DCD 09/12 PO 1638 Azithromycin 500 MG DAILY 09/12 09 DCD 09/13 PO 0947 Docusate Sodium 100 MG BID 09/12 1100 DCD 09/13 PO 0948 Enoxaparin Sodium 40 MG DAILY 09/10 1814 DCD 09/13 SC 0948 Escitalopram Oxalate 10 MG AT BEDTIME 09/10 2100 DCD 09/12 PO 2009 Guaifenesin/ 10 ML Q6P PRN 09/12 0845 DCD Dextromethorphan PO Hydrochlorothiazide 12.5 MG DAILY 09/11 899 DCD 09/13 PO 0947 Levothyroxine Sodium 0.1 MG DAILY AC 09/11 07 DCD 09/13 PO 0631 Losartan Potassium 25 MG DAILY 09/11 0900 DCD 09/13 PO 0948 Multivitamins 1 TAB DAILY 09/11 0900 DCD 09/13 Therapeutic PO 0949 Omeprazole 40 MG DAILY AC 09/12 0832 DCD 09/13 PO 0631 Patient Medication 1 ED ONE ONE 09/13 1100 DC Teaching ED 09/13 1101 Polyethylene Glycol 17 GM DAILY 09/12 1415 DCD 09/13 PO 0948 Prednisone 40 MG DAILY 09/12 0900 DCD 09/13 PO 0947 Senna 187 MG AT BEDTIME 09/12 2100 DCD 09/12 PO 2255 Assessment/Plan Assessment: 86-year-old female with a past medical history of hypertension, hyperlipidemia, COPD, GERD, hypothyroidism, and IBS presenting for shortness breath. #Shortness of breath secondary to bronchitis/COPD Patient received ceftriaxone and azithromycin. This was discontinued in view of bronchitis/COPD. Patient continued on by mouth steroids and azithromycin. Continue TRC nebulization. Patient advised to follow-up with her primary care physician and also follow up her echo results. #HTN -cont losartan, hydro-chlorothiazide, #Chronic medical problems -Continue aspirin, levothyroxine, escitalopram, Protonix, atorvastatin #FULL CODE #DVT prophylaxisLovenox #Physical therapy-suggested home physical therapy. Patient sent home with by mouth steroids, azithromycin, nebulizer with albuterol solution. Problem List: 1. Bronchitis Pain Ratin Pain Location: none Pain Goal: Remain pain free Pain Plan: tylenol Tomorrow's Labs & Rationales: none
--- NOTE | 2017-09-13 08:03 | Patient Discharge Instructions ---
Discharge Instructions General Discharge Information You were seen/treated for: Bronchitis Watch for these problems: In case of cough, chest pain, shortness of breath, fever please go to the nearest emergency room Special Instructions: Please follow-up with your primary care provider and preanalytics team lead within 1-2 weeks of discharge Diet Continue normal diet: No Recommended Diet: Heart Healthy Activity Full Activity/No Limits: No Activity Self Limited: Yes Acute Coronary Syndrome Inclusion Criteria At DC or during hospital stay patient has or had the following: ACS DIAGNOSIS No Discharge Core Measures Meds if any: Prescribed or Continued at Discharge Meds if any: NOT Prescribed or Continued at Discharge Congestive Heart Failure Inclusion Criteria At DC or during hospital stay patient has or had the following: CHF DIAGNOSIS No Discharge Core Measures Meds if any: Prescribed or Continued at Discharge Meds if any: NOT Prescribed or Continued at Discharge Cerebrovascular accident Inclusion Criteria At DC or during hospital stay patient has or had the following: CVA/TIA Diagnosis No Discharge Core Measures Meds if any: Prescribed or Continued at Discharge Meds if any: NOT Prescribed or Continued at Discharge Venous thromboembolism Inclusion Criteria VTE Diagnosis No VTE Type NONE VTE Confirmed by (Test) NONE Discharge Core Measures - Per Current guidelines, there needs to be overlap - treatment for the first 5 days of Warfarin therapy. - If discharged on Warfarin prior to 5 days of - overlap therapy, the patient will need to be - assessed for post discharge needs including - *Post discharge parental anticoagulation - *Warfarin and/or parental anticoagulation education - *Follow up date to check INR post discharge At least 5 days overlap therapy as Inpatient No Meds if any: Prescribed or Continued at Discharge Note: Overlap Therapy is Warfarin and Anticoagulant Meds if any: NOT Prescribed or Continued at Discharge
[2017-09-13] MEDS ORDERED: PREDNISONE10 M2 PO ×4 (08:11→10:33)
[2017-09-13 09:48] VITALS: BP 146/80
[2017-09-13] MEDS ORDERED: AZITHROMYCIN500 M3 PO ×2 (09:49→10:33)
--- NOTE | 2017-09-13 10:49 | PN- Att Addend ---
Attending Addendum Attending Brief Note Patient seen and examined, overall doing okay. Patient passed swallow evaluation per MBS. Echo was done last night and results are pending. She denies any shortness of breath but continues to claim that she feels that her neck muscles get tight likely secondary to her arthritis. vss. on exam On lung exam: she has decreased bs overall. no labs today. A/P; 86 y/o F with pmh sig for hypertension, hyperlipidemia, COPD, GERD, hypothyroidism, and IBS admitted with shortness of breath, less likely community -acquired pneumonia. Lizet has acute bronchitis as well as acute COPD exacerbation. Patient has been switched to oral prednisone. She is already on oral azithromycin. We will give her the prescription for the nebulizer. Otherwise she is medically stable for discharge. Echo results can be followed as alexis out patient. Will refer to Pulm as outpatient.
--- NOTE | 2017-09-13 13:11 | Discharge Summary ---
Visit Information Visit Dates Admission Date: 09/10/17 Discharge Date: 09/13/17 Hospital Course Course Attending Physician: Tami Longoria MD Primary Care Physician: Alex Walter MD Hospital Course: 86-year-old female with a past medical history of hypertension, hyperlipidemia, COPD, GERD, hypothyroidism, and IBS presented for shortness breath. The patient 's son states that the symptoms started several weeks ago when the patient had signs of a upper respiratory infection. The son stated that the patient went to the PCP on the september 01 and was given a Z-Harish and pro air. He stated that the symptoms occurred 3-4 days after PCP visit. He states that she got a flu test which was negative and she was diagnosed with a cold. The son stated that the symptoms started a day prior to admission when the patient was started on a trial of Lanzess for constipation. He stated that the patient had several bowel movements. He stated that after taking the medication the patient began having symptoms of GERD which then led to an acute reemergence of her shortness of breath. The shortness of breath is associated with cough. The patient denies any fevers or chills. Hospital course #Shortness of breath secondary to bronchitis/COPD Patient received ceftriaxone and azithromycin initially which was discontinued in view of bronchitis/COPD. Patient continued on by mouth steroids and azithromycin. Continued TRC nebulization. Patient advised to follow-up with her primary care physician and also follow up her echo results. She was given referral to Dr. Vazquez. Patient was sent home with nebulizer and albuterol solution. #HTN -Continued losartan, hydro-chlorothiazide, #Chronic medical problems - aspirin, levothyroxine, escitalopram, Protonix, atorvastatin #Difficulty swallowing Patient was seen by speech and swallow eval ordered a modified barium swallow which showed silent penetration of contrast with mild pooling of contrast in the Valleculae. Advised to continue regular diet with Advise for small bites/slips , slow rate, alternating solids/liquids, Pred position. Not talking while eating/drinking, reducing environmental distraction. Follow-up with echocardiogram Nebulizer sent along with albuterol solution Complications: None Allergies: Coded Allergies: linaclotide (From LINZESS) (Severe, WHEEZING, SOB 09/10/17) tiotropium (UNKNOWN 09/10/17) Disposition Summary Disposition Principal Diagnosis: Bronchitis/COPD Additional Diagnosis: none Discharge Disposition: home health services Discharge Instructions General Discharge Information Code Status: Full Code Patient's Diet: Regular diet Patient's Activity: As tolerated Follow-Up Instructions/Appts: These follow-up with your primary care provider and auditing clerk within 1-2 weeks of discharge Medications at Discharge Discharge Medications: Continue taking these medications: Albuterol Sulfate (Proair Hfa) 90 MCG HFA.AER.AD 2 Puff Inhale through mouth EVERY 4-6 HOURS NEEDED as needed for RESP. Qty = 8 Lovastatin (Lovastatin) 20 MG TABLET 1 Tablet ORAL DAILY Qty = 90 Comments: LAST TAKEN: 09/12/17 @ 5 PM Levothyroxine Sodium (Levothyroxine Sodium) 100 MCG TABLET 1 Tablet ORAL DAILY Qty = 90 Comments: LAST TAKEN: 09/13/17 @ 6 AM Losartan Potassium (Losartan Potassium) 25 MG TABLET 1 Tablet ORAL DAILY Qty = 90 Comments: LAST TAKEN: 09/13/17 @ 9 AM Escitalopram Oxalate (Escitalopram Oxalate) 10 MG TABLET 1 Tablet ORAL DAILY Qty = 90 Comments: LAST TAKEN: 09/12/17 @ 10 PM Hydrochlorothiazide (Hydrochlorothiazide) 12.5 MG CAPSULE 1 Capsule ORAL DAILY Qty = 90 Comments: LAST TAKEN: 09/13/17 @ 9 AM Aspirin (Ecotrin*) 81 MG TABLET.DR 1 Tablet ORAL DAILY Comments: LAST TAKEN: 09/13/17 @ 9AM Multiple Vitamin (Multivitamins) 1 EACH TABLET 1 Tablet ORAL DAILY Comments: LAST TAKEN: 09/13/17 @ 9 AM Start taking the following new medications: Prednisone (Prednisone) 10 MG TABLET 1 Tablet ORAL DAILY Qty = 12 No Refills Instructions: take 3 tab from 09/14-09/15 Take 2 tab from 09/17-09/17 Take 1 tab from 09/18-09/19 . Comments: take 3 tabs-09/14-09/15 Take 2 tab- 09/16-09/17 Take 1 tab- 09/18-09/19 LAST TAKEN: 09/13/17 @ 9 AM Azithromycin (Azithromycin) 500 MG TABLET 500 Milligram ORAL DAILY Qty = 1 No Refills Instructions: . Comments: LAST TAKEN: 09/13/17 @ 9 AM Albuterol Sulfate (Albuterol Sulfate) 2.5 MG/3 ML (0.083 %) VIAL.NEB 1 [place] Inhale Solution EVERY SIX HOURS as needed for BRONCHITIS/COPD Qty = 1 Refills = 1 Instructions: . Comments: ICD CODE 190 Copies To: Saba HATFIELD,Alex Barrientos
[2017-09-13] MEDS ORDERED: ALBUTEROL2.5 MG/3 M INH/SOL ×2 (14:49→14:53)
--- NOTE | 2017-09-14 20:05 | ECHOCARDIOGRAM REPORT ---
SEDRICK EM Age: 86 : 1930 Gender: F Exam Date: 09/12/2017 20:14 Exam Location: [address] [place] [address] A Ht (in): 61 Wt (lb): 171 BSA: 1.86 BP: 136 / 72 Ordering Physician: Cheko White MD Referring Physician: Cheko White MD Technologist: Lux Pedroza [facility] Room Number: 223-1 Indications: HEART FAILURE Rhythm: Sinus Technical Quality: Fair, Technically difficult study FINDINGS Left Ventricle Normal size left ventricle. No obvious regional wall motion abnormalities. Normal left ventricular ejection fraction estimated at 55-60%. Right Ventricle Right ventricle not well visualized, grossly normal. Right Atrium Normal right atrial size. Left Atrium Mild left atrial dilatation. Mitral Valve Moderate thickening/calcification of the anterior mitral valve leaflet. Mitral annular calcification. Trace mitral regurgitation. Aortic Valve Trileaflet aortic valve. Diffuse thickening (sclerosis) of the aortic valve cusps without reduced excursion. No aortic stenosis. No aortic regurgitation. Tricuspid Valve Tricuspid valve not well visualized, grossly normal. Trace to mild tricuspid regurgitation. Pulmonic Valve Pulmonic valve not well visualized. Pericardium No pericardial effusion. Great Vessels Aortic root and proximal ascending aorta not well visualized, grossly normal. CONCLUSIONS 1. This was a technically difficult study 2. Moderate aortic sclerosis is present with no valvular stenosis or insufficiency. 3. Moderate thickening and calcification of the mitral leaflets is present with annular calcification and minimal mitral insufficiency with mild left atrial enlargement. 4. There is no significant pericardial fluid detected 5. the left ventricular chamber size is normal with a normal ejection fraction and no resting wall motion abnormalities. 6. Minimal to mild tricuspid insufficiency is present with no evidence of pulmonary hypertension. 7. There is evidence of mild left ventricular diastolic dysfunction Adilene Fontanez M.D. (Electronically Signed) Final Date: 14 September 2017 20:04 MEASUREMENTS (Male / Female) Normal Values 2D ECHO LV Diastolic Diameter PLAX 4.5 cm 4.2 - 5.9 / 3.9 - 5.3 cm LV Systolic Diameter PLAX 2.7 cm 2.1 - 4.0 cm LV Fractional Shortening PLAX 40.0 % 25 - 46 % LV Ejection Fraction 2D Teich 70.8 % IVS Diastolic Thickness 1.1 cm LVPW Diastolic Thickness 1.1 cm LV Relative Wall Thickness 0.5 RV Internal Dim ED PLAX 2.4 cm 1.9 - 3.8 cm LVOT Diameter 1.9 cm Aortic Root Diameter 3.3 cm LA Systolic Diameter LX 4.0 cm 3.0 - 4.0 / 2.7 - 3.8 cm LA Volume 59.0 cm 18 - 58 / 22 - 52 cm Ascending Aorta Diameter 3.1 cm DOPPLER AV Peak Velocity 169.0 cm/s AV Peak Gradient 11.4 mmHg AV Mean Velocity 117.0 cm/s AV Mean Gradient 6.0 mmHg AV Velocity Time Integral 33.7 cm LVOT Peak Velocity 109.0 cm/s LVOT Peak Gradient 4.8 mmHg LVOT Mean Velocity 73.9 cm/s LVOT Mean Gradient 3.0 mmHg LVOT Velocity Time Integral 24.0 cm LVOT Stroke Volume 68.0 cm AV Area Cont Eq vti 2.0 cm AV Area Cont Eq pk 1.8 cm MV Peak Velocity 111.0 cm/s MV Peak Gradient 4.9 mmHg MV Mean Velocity 83.0 cm/s MV Mean Gradient 3.0 mmHg Mitral E Point Velocity 58.4 cm/s Mitral A Point Velocity 94.0 cm/s Mitral E to A Ratio 0.6 MV PHT Velocity 88.4 cm/s MV Deceleration [place] 526.5 cm/s MV Pressure Half Time 50.4 ms MV Area PHT 4.4 cm MV Deceleration Time 183.0 ms TV Peak Velocity 276.0 cm/s TV Peak E Velocity 52.9 cm/s TV Peak A Velocity 50.3 cm/s TV E to A Ratio 1.1 Right Atrial Pressure 5.0 mmHg PV Peak Velocity 86.9 cm/s PV Peak Gradient 3.0 mmHg PV Mean Velocity 65.3 cm/s PV Mean Gradient 2.0 mmHg PV Velocity Time Integral 17.1 cm LV E' Lateral Velocity 9.0 cm/s Mitral E to LV E' Lateral Ratio 6.5 LV E' Septal Velocity 5.0 cm/s Mitral E to LV E' Septal Ratio 11.8
== END 2017-09-13 12:53 | disposition home health service (06) | DRG 190 ==
LOC: ERH 12:43 → ERHI 16:07 → 2NA 16:07 → ENRESERV 16:33 → ENTRNSPT 17:17 → EDTRNSPT 17:30 → EDTRNSPTSTS 17:30 → 2NA 17:37 → CMPTRNSPT 17:47 → 2NA 09-11 09:26 → ENPENDDIS 09-13 11:06 → ENTRNSPT 09-13 12:33 → EDTRNSPTSTS 09-13 12:51 → 2NA 09-13 12:53 → CMPTRNSPT 09-13 12:55
PROVIDERS: Internal Medicine; Physician Assistant Medical
DX: J44.0 Chronic obstructive pulmonary disease with (acute) lower respiratory infection (principal); J18.9 Pneumonia, unspecified organism; J44.1 Chronic obstructive pulmonary disease with (acute) exacerbation; E03.9 Hypothyroidism, unspecified; J20.9 Acute bronchitis, unspecified; E78.5 Hyperlipidemia, unspecified; K21.9 Gastro-esophageal reflux disease without esophagitis; I10 Essential (primary) hypertension; K58.9 Irritable bowel syndrome, unspecified; Z88.8 Allergy status to other drugs, medicaments and biological substances; Z79.82 Long term (current) use of aspirin; Z79.51 Long term (current) use of inhaled steroids; K59.00 Constipation, unspecified
CPT/HCPCS: 2NASP; 36592; 71045; 74230; 81001; 82436; 87040; 87070; 87449; 87450; 93005; 93010; 93306; 96374; 96375; 97110-GO; 97116-GO; 97161-GP; 97530-GO; J0456; J0696; J1200; J1650; J2920; J2930; J7040; J7060

== ENCOUNTER 2017-09-19 05:31 | Emergency (ER) | payer OTHER ==
[~2017-09-19] VITALS: Ht 154.9 cm; Wt 77.1 kg
[~2017-09-19 05:31] MED LIST changes: +ALBUTEROL2.5 MG/3 M INH/SOL; +ASPIRIN EC81 M1 PO; +AZITHROMYCIN500 M3 PO; +ESCITALOPRAM OX10 MG PO; +HYDROCHLOROTH12.5 M3 PO; +LEVOTHYROXINE100 MC1 PO; +LOSARTAN POTASS25 M1 PO; +LOVASTATIN20 M1 PO; +MULTIVITAMINS1 EAC9 PO; +PREDNISONE10 M2 PO; +PROAIR HFA8.5 GM INH
--- NOTE | 2017-09-19 05:41 | ED DYSPNEA/ASTHMA COMPLAINT ---
History of Present Illness General Chief Complaint: Dyspnea (COPD, CHF, Other) Stated Complaint: BIBA, SOB Source: patient, old records, EMS Exam Limitations: no limitations Vital Signs & Intake/Output Vital Signs & Intake/Output Vital Signs Date Time Temp Pulse Resp B/P B/P Pulse O2 O2 Flow FiO2 Mean Ox Delivery Rate 09/19 1336 94 09/19 1233 98.6 91 22 168/78 94 Room Air 09/19 1024 97.5 93 22 170/77 05 1007 97.5 93 22 170/77 92 Room Air Room Air 09/19 0926 96.8 09/19 0841 96.8 09/19 0841 93 Nasal 1.0L Cannula 09/19 0830 84 18 208/88 100 Room Air Room Air 09/19 0656 96.8 76 24 194/88 09/19 0635 76 24 194/88 99 Nasal 1.0L Cannula 09/19 0558 24 100 Nasal 3.0L Cannula 09/19 0550 96 Nasal 3.5L Cannula 09/19 0540 206/96 09/19 0538 95 Nasal 4.0L Cannula 09/19 0533 96.8 86 30 239/109 93 Room Air Allergies Coded Allergies: linaclotide (From LINquitchenS) (Severe, WHEEZING, SOB 09/10/17) tiotropium (UNKNOWN 09/10/17) Triage Nurses Notes Reviewed? yes HPI: Patient was discharged from here last week after admission for bronchitis. Patient has COPD but is not on home oxygen. Patient was feeling better after her admission however yesterday she began to feel shortness of breath and wheezing again. Patient also feels a tightness sensation in her throat. Patient states she felt similar symptoms prior to her last admission. Patient states that when she lays down she feels that she is being chocked. Patient denies any chest pain or palpitations. There is no nausea or vomiting. There is no fevers or chills. Patient additionally speak 2-3 word sentences upon presentation to the emergency room. (Alvarado HATFIELD,Francisco Adair) Reconcile Medications Albuterol Sulfate (Proair Hfa) 90 MCG HFA.AER.AD 2 PUF INH Q4-6 PRN PRN RESP. (Reported) Albuterol Sulfate 2.5 MG/3 ML (0.083 %) VIAL.NEB 1 JIM INH/MILLY Q6 PRN BRONCHITIS/COPD . Aspirin (Ecotrin*) 81 MG TABLET.DR 1 TAB PO DAILY HEART/BLOOD (Reported) Escitalopram Oxalate 10 MG TABLET 1 TAB PO DAILY MENTAL HEALTH (Reported) Hydrochlorothiazide 12.5 MG CAPSULE 1 CAP PO DAILY DIURETIC/BP (Reported) Levothyroxine Sodium 100 MCG TABLET 1 TAB PO DAILY THYROID (Reported) Losartan Potassium 25 MG TABLET 1 TAB PO DAILY BP (Reported) Lovastatin 20 MG TABLET 1 TAB PO DAILY CHOLESTEROL (Reported) Multiple Vitamin (Multivitamins) 1 EACH TABLET 1 TAB PO DAILY SUPPLEMENT ( Reported) Prednisone (Deltasone) 20 MG TABLET 3 TAB PO DAILY WHEEZING/TROUBLE BREATHING BEGIN TOMORROW (Dennise HATFIELD,Shashi Saini) Past History Travel History Traveled to [place] past 21 day No Medical History Any Pertinent Medical History? see below for history Neurological: NONE EENT: CATARACTS R EYE Cardiovascular: hypertension, hyperlipidemia Respiratory: COPD Gastrointestinal: GERD Hepatic: NONE Renal: urinary incontinence, UTI Musculoskeletal: ARTHRITIS Endocrine: HYPOTHYROID Blood Disorders: NONE Cancer(s): NONE MAILING SPECIALIST/Reproductive: NONE History of MRSA: No History of VRE: No History of CDIFF: No Influenza Vaccine: 02/19/14 Surgical History Surgical History: non-contributory Psychosocial History Who do you live with Patient/Self Services at Home None What is your primary language Romanian Tobacco Use: Quit >30 days ago ETOH Use: denies use Illicit Drug Use: denies illicit drug use Family History Family History, If Any: MOTHER (CVA and DM). FATHER (CHF, renal stones and gall stones). SON (DM and TX at 48 years). Hx Contributory? No (Alvarado HATFIELD,Francisco Adair) Review of Systems Review of Systems Constitutional: Reports: no symptoms. EENTM: Reports: no symptoms. Respiratory: Reports: see HPI, orthopnea (?), short of breath, wheezing. Cardiovascular: Reports: no symptoms. GI: Reports: no symptoms. Genitourinary: Reports: no symptoms. Musculoskeletal: Reports: no symptoms. Skin: Reports: no symptoms. Neurological/Psychological: Reports: no symptoms. Hematologic/Endocrine: Reports: no symptoms. Immunologic/Allergic: Reports: no symptoms. All Other Systems: Reviewed and Negative (Francisco Childers MD) Physical Exam Physical Exam General Appearance: well developed/nourished, alert, awake, anxious, moderate distress Head: atraumatic, normal appearance Eyes: Bilateral: PERRL, EOMI. Ears, Nose, Throat: normal pharynx, normal ENT inspection, hearing grossly normal Neck: normal inspection, supple, full range of motion Respiratory: decreased breath sounds, wheezing, respiratory distress Cardiovascular: regular rate/rhythm, normal peripheral pulses Gastrointestinal: normal bowel sounds, soft, non-tender, no organomegaly Extremities: normal inspection, normal capillary refill, normal range of motion, no edema Neurologic/Psych: no motor/sensory deficits, awake, alert, oriented x 3, normal mood/affect Lymphatic: no anterior cervical king Core Measures ACS in differential dx? No CVA/TIA Diagnosis No Sepsis Present: No Sepsis Focused Exam Completed? No (Alvarado HATFIELD,Francisco Adair) Progress Differential Diagnosis: asthma, bronchitis, COPD, pulmonary embolism, pneumonia, pneumothorax Plan of Care: Orders Procedure Date/time Status Heart Healthy Diet 09/19 L Active AEROSOL (GEN) 09/19 0546 Complete LACTIC ACID 09/19 0542 Complete Telemetry/City Editor 09/19 0541 Active TROPONIN LEVEL 09/19 0541 Complete COMPREHENSIVE METABOLIC PANEL 09/19 0541 Complete CBC WITHOUT DIFFERENTIAL 09/19 0541 Complete B-TYPE NATRIURETIC PEP (BNP) 09/19 0541 Complete EKG 09/19 0536 Active Current Medications Sig/Yohannes Start time Last Medication Dose Stop Time Status Admin Aspirin Buffered 81 MG DAILY 09/19 1014 UNVr 09/19 (Ecotrin) 1024 Laboratory Tests 09/19/17 0842: Lactic Acid Cancelled 09/19/17 0617: Lactic Acid 0.5 L 09/19/17 0617: Anion Gap 6, Estimated GFR > 60, BUN/Creatinine Ratio 38.0 H, Glucose 107 H, Calcium 8.9, Total Bilirubin 0.8, AST 24, ALT 41, Alkaline Phosphatase 46, Troponin I < 0.01, Gen-[id number] Pept 293 H, Total Protein 6.5, Albumin 3.6 , Globulin 2.9, Albumin/Globulin Ratio 1.2 09/19/17 0542: CBC w Diff NO MAN DIFF REQ, RBC 4.56, MCV 97.3, MCH 32.1 H, MCHC 33.0, RDW 13.9 , MPV 9.2, Gran % 59.3, Lymphocytes % 26.9, Monocytes % 9.4 H, Eosinophils % 4.1, Basophils % 0.3, Absolute Granulocytes 5.7, Absolute Lymphocytes 2.6, Absolute Monocytes 0.9 H, Absolute Eosinophils 0.4, Absolute Basophils 0 Diagnostic Imaging: Viewed by Me: Radiology Read. Discussed w/RAD: Radiology Read. Initial ED EKG: SR, FIRST DEGREE HB, LATE TRANSITION, NO CHANGE FROM PRIOR Prior EKG: unchanged Rhythm Strip: normal sinus rhythm Hand-Off Endorsed To: Shashi Bowden MD Endorsed Time: 0700 Pending: labs Comments: Patient is feeling much improved after the DuoNeb. Patient is now able to speak complete sentences. (Alvarado HATFIELD,Francisco Adair) CXR Impression: PATIENT: ANGELINE EM PRESENT AGE: 86 PATIENT ACCOUNT NO: [id number] : [birth year] LOCATION: [facility] ORDERING PHYSICIAN: Francisco Childers MD SERVICE DATE: 09/19/17 EXAM TYPE: RAD - XRY- PORTABLE CHEST XRAY EXAMINATION: XR PORTABLE CHEST CLINICAL INFORMATION: Shortness of breath COMPARISON: 09/10/2017 TECHNIQUE: Portable frontal view of the chest was obtained. FINDINGS: The lungs are hyperinflated, suggesting underlying COPD. No focal consolidation is seen. No appreciable pneumothorax, though the right lung apex is partially obscured due to patient positioning. No evidence of pulmonary edema or significant pleural effusion. The cardiomediastinal contour is unremarkable. No acute osseous findings are seen. IMPRESSION: Hyperinflated lungs suggesting COPD, without additional acute findings. DICTATED BY: Doug James MD DATE/TIME DICTATED:09/19/17634 MODELING AND SIMULATION ANALYST:JOSE ENRIQUE DATE/TIME TRANSCRIBED:09/19/17634 CONFIDENTIAL, DO NOT COPY WITHOUT APPROPRIATE AUTHORIZATION. <Electronically signed in Other Vendor System> SIGNED BY: Doug James MD 09/19/17 0641 Comments: 09/19/2017 7:26:50 AM patient signed out to me by Dr. Childers at shift bladder changer. 09/19/2017 8:25:37 AM Angeline is feeling better but her "breathing" is not back to baseline. She is currently on less then 1 L O2 via nasal cannula and oxygen saturation is 95%. 02 is being weaned. I ordered an additional albuterol nebulizer and ibuprofen for her neck stiffness secondary to arthritis. Disposition pending. 09/19/2017 9:27:44 AM patient is feeling better and feels she is approaching her baseline pulmonary status. She is now currently on room air and once she equilibrates we will attempt ambulation. I feel the patient is able to ambulate at baseline she would be amenable to outpatient management. 09/19/2017 2:29:48 PM I have updated patient's son on test results and plan. He will take Angeline home. (Dennise HATFIELD,Shashi Saini) Departure Departure Condition: Stable Referrals: Saba HATFIELD,Alex Barrientos (PCP/Family) Departure Forms: Customer Survey General Discharge Information (Alvarado HATFIELD,Francisco Adair) Departure Disposition: HOME OR SELF CARE Clinical Impression Primary Impression: COPD exacerbation Additional Instructions: Rest, no exertion. Take your nebulizer every 6 hours. May use your inhaler in between nebulizer doses if necessary. Prednisone as prescribed. Follow-up with your primary care physician or fixed wing pilot within 48 hours for reevaluation. Return if any concerns or sudden worsening. Please note that there might be incidental findings in your evaluation that are unrelated to the current emergency department visit. Please notify your primary care doctor about this emergency department visit in order to obtain and review all of the testing performed so that these incidental findings can be monitored as needed. If you had an x-ray performed, please understand that some fractures may not be seen on the initial set of x-rays. If your symptoms persist you might need a repeat set of x-rays to check for such a fracture. If you had a laceration evaluated, please understand that foreign bodies such as glass or wood may not be visible to the naked eye or on plain x-rays. If the wound becomes red, swollen, increasingly more painful or if there is any drainage from the wound, please have it reevaluated by a physician for the possibility of a retained foreign body. If you're unable to follow up as outlined in the discharge instructions please return to the emergency department. Thank you for choosing the [facility] Emergency Department for your care. It was a pleasure to serve you today. Shashi Bowden M.D. [facility] Prescriptions: Current Visit Scripts Prednisone (Deltasone) 3 TAB PO DAILY #12 TAB BEGIN TOMORROW (Dennise HATFIELD,Shashi Saini) Critical Care Note Critical Care Note Critical Care Time: non-applicable (Alvarado HATFIELD,Francisco Adair) Critical Care Note Critical Care Time: 30-74 min (Dennise HATFIELD,Shashi Saini)
[2017-09-19 06:07] LABS: ABSOLUTE BASOPHIL COUNT 0 /CUMM (0.0-0.2); ABSOLUTE EOSINOPHIL COUNT 0.4 /CUMM (0.0-0.7); ABSOLUTE GRANULOCYTE CT 5.7 /CUMM (1.4-6.5); ABSOLUTE LYMPH COUNT 2.6 /CUMM (1.2-3.4); ABSOLUTE MONOCYTE COUNT 0.9 /CUMM (0.10-0.60); BASOPHIL % 0.3 % (0.0-2.0); EOSINOPHIL % 4.1 % (0-5); GRANULOCYTE % 59.3 % (42.2-75.2); HEMATOCRIT 44.4 % (37-47); MEAN CORPUSCULAR HGB 32.1 PG (27.0-31.0); MEAN CORPUSCULAR VOLUME 97.3 FL (81.0-99.0); MEAN PLATELET VOLUME 9.2 FL (7.4-10.4); PLATELET COUNT 266 /CUMM (130-400); RBC DISTRIBUTION WIDTH 13.9 % (11.5-14.5); RED BLOOD CELL CT 4.56 /CUMM (4.20-5.40); WHITE BLOOD CELL COUNT 9.5 /CUMM (4.8-10.8)
--- NOTE | 2017-09-19 06:41 | RADIOLOGY REPORT ---
EXAMINATION: XR PORTABLE CHEST CLINICAL INFORMATION: Shortness of breath COMPARISON: 09/10/2017 TECHNIQUE: Portable frontal view of the chest was obtained. FINDINGS: The lungs are hyperinflated, suggesting underlying COPD. No focal consolidation is seen. No appreciable pneumothorax, though the right lung apex is partially obscured due to patient positioning. No evidence of pulmonary edema or significant pleural effusion. The cardiomediastinal contour is unremarkable. No acute osseous findings are seen. IMPRESSION: Hyperinflated lungs suggesting COPD, without additional acute findings.
[2017-09-19] MEDS ORDERED: DELTASONE20 MG PO (10:08)
[2017-09-19 12:33] VITALS: BP 168/78
== END 2017-09-19 15:02 ==
LOC: ERH 05:31
PROVIDERS: Emergency Medicine
DX: J44.1 Chronic obstructive pulmonary disease with (acute) exacerbation (principal)
CPT/HCPCS: 1263; 71045; 93005; 93010; 96374; J2930; J3490

== ENCOUNTER 2017-10-05 09:40 | Inpatient (IN) | payer OTHER ==
[~2017-10-05] VITALS: Ht 162.6 cm; Wt 78.6 kg
[~2017-10-05 09:40] MED LIST changes: +DELTASONE20 MG PO
--- NOTE | 2017-10-05 09:44 | ED DYSPNEA/ASTHMA COMPLAINT ---
History of Present Illness General Chief Complaint: Dyspnea (COPD, CHF, Other) Stated Complaint: BIBA DIFF BREATHING Source: patient, old records, EMS Exam Limitations: no limitations Vital Signs & Intake/Output Vital Signs & Intake/Output Vital Signs Date Time Temp Pulse Resp B/P B/P Pulse O2 O2 Flow FiO2 Mean Ox Delivery Rate 10/05 1432 98.4 96 20 120/80 97 Room Air 10/05 1352 Nasal 2.0L Cannula 10/05 1336 87 176/81 10/05 1302 97.9 87 15 176/81 95 Nasal 2.0L Cannula 10/05 1201 98.0 88 18 182/81 98 Nasal 2.0L Cannula 10/05 1052 Room Air Room Air 10/05 1022 94 10/05 0950 98.1 85 18 199/85 95 Room Air Allergies Coded Allergies: linaclotide (From LINZESS) (Severe, WHEEZING, SOB 09/10/17) tiotropium (UNKNOWN 09/10/17) Reconcile Medications Acetaminophen (Pain & Fever) 325 MG TABLET 1 TAB PO Q8P PRN PAIN (Reported) Aspirin (Ecotrin*) 81 MG TABLET.DR 1 TAB PO DAILY HEART/BLOOD (Reported) Cholecalciferol (Vitamin D3) 1,000 UNIT TABLET 1 TAB PO DAILY VITAMIN SUPPORT (Reported) Cyanocobalamin (Vitamin B-12) 1,000 MCG TABLET 1 TAB PO DAILY VITAMIN SUPPORT (Reported) Escitalopram Oxalate 10 MG TABLET 1 TAB PO DAILY MENTAL HEALTH (Reported) Ferrous Sulfate 325 MG (65 MG IRON) TABLET 1 TAB PO TID IRON, VITAMIN ( Reported) Fluticasone Propionate 50 MCG/ACTUATION SPRAY.SUSP 2 SPRAY NASB DAILY ALLERGIES (Reported) Hydrochlorothiazide 12.5 MG CAPSULE 1 CAP PO DAILY DIURETIC/BP (Reported) Levothyroxine Sodium 100 MCG TABLET 1 TAB PO DAILY AC THYROID (Reported) Loperamide HCl (Loperamide) 2 MG CAPSULE 1 CAP PO Q6 PRN CONSTIPATION ( Reported) Losartan Potassium 25 MG TABLET 1 TAB PO DAILY BP (Reported) Lovastatin 20 MG TABLET 1 TAB PO DAILY CHOLESTEROL (Reported) Magnesium Oxide 250 MG TABLET 1 TAB PO DAILY SUPPLEMENT (Reported) Multiple Vitamin (Multivitamins) 1 EACH TABLET 1 TAB PO DAILY SUPPLEMENT ( Reported) Naproxen (Naprosyn) 500 MG TABLET 1 TAB PO BID PRN PAIN (Reported) Polyethylene Glycol 3350 (Miralax) 17 GRAM POWD.PACK 1 PAC PO DAILY CONSTIPATION (Reported) dissolve in water Sennosides (Senna) 8.6 MG TABLET 1 TAB PO DAILY PRN CONSTIPATION (Reported) Triage Nurses Notes Reviewed? yes Onset: Abrupt Duration: day(s): (2-3), constant Timing: recent history Severity: moderate Prior Episodes/Possible Cause: frequent episodes Associated Symptoms: cough HPI: 86 year old female with past medical history of hypertension, hyperlipidemia, COPD (not on home o2), GERD, hypothyroidism, and IBS presents to the ER for evaluation complaining of progressively worsening shortness of breath or productive cough white to yellow sputum going on for the past 2-3 days. Patient was admitted last month for COPD bronchitis exacerbation. She denies any chest pain orthopnea or leg swelling abdominal pain nausea vomiting fever chills. Patient states that she lost power and was unable to give herself a nebulizer treatment however she's been using her inhalers without improvement. On ems arrival pts sat was 89%, 95% at this time. she was given a sublingual nitro en route. she denies any chest pain since symptoms began (Carroll Cartagena) Past History Travel History Traveled to [place] past 21 day No Medical History Any Pertinent Medical History? 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 FATHER (CHF, renal stones and gall stones). SON (DM and AK at 48 years). Hx Contributory? No (Carroll Cartagena) Review of Systems Review of Systems Constitutional: Reports: see HPI. Comments Review of systems: See HPI, All other systems negative. Constitutional, no chills no fever,(+) malaise no weight loss HEENT: no sore throat (+) congestion, no ear pain Cardiovascular: No chest pain , no palpitation Skin: no rashes, no change in skin Respiratory: dyspnea cough no sputum no hemoptysis GI: No nausea no vomiting, no diarrhea, : No dysuria Muscle skeletal: No joint pain, no back pain, no neck pain, Neurologic: , no headache Heme/endocrine: No bruising (Carroll Cartagena) Physical Exam Physical Exam General Appearance: well developed/nourished, awake Respiratory: wheezing Comments: Well-developed well-nourished person in no acute distress HEENT: Normal EENT exam; PERRL, EOMI. HEAD is atraumatic. moist mucous membranes. Neck: Supple, no lymphadenopathy, normal range of motion Back: Nontender, no CVA tenderness. Full range of motion Cardiovascular: Regular rate and rhythms no murmurs rubs or gallops, normal JVP Respiratory: MILD TO MODERATE respiratory distress. Patient speaking in 3-4 word sentences, diminished lung sounds bilaterally wheezing in lower lung cuevas Abdomen: Soft, nontender = Extremity: Trace edema b/l, full range of motion of extremities, Neuro: Alert oriented x3, motor sensory normal, There were no obvious focal neurologic abnormalities. Skin: No appreciable rash on exposed skin, skin is warm and dry. Psych: Mood and affect is normal, memory and judgment is normal. Core Measures ACS in differential dx? Yes CVA/TIA Diagnosis No Sepsis Present: No Sepsis Focused Exam Completed? No (Carroll Cartagena) Progress Differential Diagnosis: asthma, AMI, bronchitis, CHF, COPD, musculoskeletal pain , pulmonary embolism, pneumonia, unstable angina Plan of Care: Orders Procedure Date/time Status Heart Healthy Diet 10/06 B Active Heart Healthy Diet 10/05 D Complete TRC EVALUATION (GEN) 10/05 1442 Active OXYGEN SETUP (GEN) 10/05 1442 Active Pathway - chart 10/05 1442 Active House Staff 10/05 1442 Active Patient Data 10/05 1442 Active Code Status 10/05 1442 Active D-DIMER 10/05 1439 Active Weight 10/05 1344 Active Vital Signs 10/05 1344 Active Teach/Educate 10/05 1344 Active Pain Treatment and Response 10/05 1344 Active Nutritional Intake, Monitor 10/05 1344 Active Isolation 10/05 1344 Active Intake & Output 10/05 1344 Active Patient Care Conference 10/05 1344 Active Activity/Ambulation 10/05 1344 Active RAPID VIRAL INFLUENZA A 10/05 1252 Complete THROAT CULTURE W/QUICK STREP 10/05 1252 Active Patient Data 10/05 1202 Active ED Holding Orders 10/05 1155 Active Admit to inpatient 10/05 1155 Active Vital Signs 10/05 1155 Active Code Status 10/05 1155 Complete D-DIMER 10/05 1001 Complete Intake & Output 10/05 0949 Active EKG 10/05 0945 Active Telemetry/Dividend Deposit Entry Clerk 10/05 0944 Active BLOOD CULTURE 10/05 0944 Active TROPONIN LEVEL 10/05 0944 Complete COMPREHENSIVE METABOLIC PANEL 10/05 0944 Complete CBC WITHOUT DIFFERENTIAL 10/05 0944 Complete B-TYPE NATRIURETIC PEP (BNP) 10/05 0944 Complete US-EXT BILAT VENOUS DOPPLER 10/05 UNK Active Lab Add-on Test 10/05 UNK Active VTE Mechanical Prophylaxis 10/05 UNK Active Vital Signs 10/05 UNK Active Nursing Misc 10/05 UNK Active Intake & Output 10/05 UNK Active Hemoccult 10/05 UNK Active Current Medications Sig/Yohannes Start time Last Medication Dose Stop Time Status Admin Methylprednisolone 40 MG Q12 10/06 0900 AC (Solumedrol) Atorvastatin Calcium 5 MG 1700 10/05 1700 AC 10/05 (Lipitor) 1652 Enoxaparin Sodium 40 MG DAILY 10/05 1548 AC 10/05 (Lovenox) 1651 Aspirin Buffered 81 MG DAILY 10/05 1518 AC 10/05 (Ecotrin) 1651 Levothyroxine Sodium 0.1 MG DAILY AC 10/05 1518 AC 10/05 (Synthroid) 1651 Losartan Potassium 25 MG DAILY 10/05 1238 AC 10/05 (Cozaar) 1336 Laboratory Tests 10/05/17 1001: Anion Gap 6, Estimated GFR > 60, BUN/Creatinine Ratio 28.3 H, Glucose 93, Calcium 8.8, Total Bilirubin 1.0, AST 31, ALT 36, Alkaline Phosphatase 57, Troponin I 0.01, [id number]-[id number] Pept 655 H, Total Protein 6.6, Albumin 3.6, Globulin 3.0, Albumin/Globulin Ratio 1.2, D-Dimer High Sensitivty 475 H, CBC w Diff NO MAN DIFF REQ, RBC 4.28, MCV 96.5, MCH 32.0 H, MCHC 33.2, RDW 13.6, MPV 9.6, Gran % 78.4 H, Lymphocytes % 12.0 L, Monocytes % 7.1, Eosinophils % 1.7, Basophils % 0.8, Absolute Granulocytes 4.3, Absolute Lymphocytes 0.7 L, Absolute Monocytes 0.4, Absolute Eosinophils 0.1, Absolute Basophils 0 Microbiology 10/05 1300 NASOPHARYN: Influenza Virus A & B Rapid Smear - COMP 10/05 1010 BLOOD: Blood Culture - RECD 10/05 1001 BLOOD: Blood Culture - RECD Labs ordered old records reviewed patient medicated with Solu-Medrol DuoNeb. Case discussed with Dr. Childers agrees with plan 10/05/2017 10:37:12 AM patient reports after breathing treatment that she feels more open, sats remained 95% on room air 2330 pts ox sat 88% on ra, placed on 2L, I discussed with her at length all of her lab results x-ray findings given findings I do not believe discharge at this time would BE medically safe and she agrees with Diagnostic Imaging: Viewed by Me: Radiology Read. Discussed w/RAD: Radiology Read. Radiology Impression: PATIENT: SEDRICK EM PRESENT AGE: 86 PATIENT ACCOUNT NO: [id number] : [birth year] LOCATION: [facility] ([place]) ORDERING PHYSICIAN: Carroll NUR SERVICE DATE: 10/05/17 EXAM TYPE: RAD - XRY- PORTABLE CHEST XRAY EXAMINATION: XR PORTABLE CHEST CLINICAL INFORMATION: Dyspnea. Rule out pneumonia. COMPARISON: Chest x-ray dated 09/19/2017, 09/10/2017 and 03/12/2010. TECHNIQUE: Portable AP semierect view of the chest was obtained. FINDINGS: The cardiomediastinal silhouette is enlarged, likely related to the AP semiupright portable technique. Ectasia and tortuosity of the aorta is also seen , unchanged. Lungs bilaterally are symmetrically mildly hyperinflated and demonstrate minimal bibasilar linear atelectatic changes, left greater than right. No focal consolidation, effusion or pneumothorax is seen. Bony structures are unremarkable. IMPRESSION: Findings suggestive of obstructive lung disease with mild bibasilar linear subsegmental atelectasis. No focal pneumonia. DICTATED BY: Marta Pak MD DATE/TIME DICTATED:10/05/171049 TICKET COLLECTOR:JOSE ENRIQUE DATE/TIME TRANSCRIBED:10/05/171049 CONFIDENTIAL, DO NOT COPY WITHOUT APPROPRIATE AUTHORIZATION. <Electronically signed in Other Vendor System> SIGNED BY: Marta Pak MD 10/05/17 1103 Initial ED EKG: nsr at 80, no acute st seg changes, normal axis Prior EKG: unchanged (09/19/17) Rhythm Strip: normal sinus rhythm (Carroll Cartagena) Departure Departure Time of Disposition: 1142 Disposition: STILL A PATIENT Condition: Stable Clinical Impression Primary Impression: COPD exacerbation Referrals: Saba HATFIELD,Alex Barrientos (PCP/Family) Departure Forms: Customer Survey General Discharge Information Admission Note Spoke With: Janet Singh MD Documentation of Exam: Documentation of any treatments & extenuating circumstances including Concerns Regarding Discharge (functional status, medication knowledge or non-compliance, living conditions, etc.) that warrant an admission rather than observation: [ pulm consult, iv steroids, iv abx, trend labs, premature discharge would be medically harmful as pt is not normally on home o2, desaturates on room air to 88%. (Carroll Cartagena) PA/SDC TEACHER Co-Sign Statement Statement: ED Attending supervision documentation- [X] I saw and evaluated the patient. I have also reviewed all the pertinent lab results and diagnostic results. I agree with the findings and the plan of care as documented in the PA's/SDC TEACHER's documentation. [X] I have reviewed the ED Record and agree with the PA's/SDC TEACHER's documentation. [] Additions or exceptions (if any) to the PAs/SDC TEACHER's note and plan are summarized below: [Patient needs admission for COPD exacerbation. Patient will need IV antibiotics, IV steroids, pulmonary consultation, nebulizers] (Alvarado HAFTIELD,Francisco Adair) Critical Care Note Critical Care Note Critical Care Time: non-applicable (Carroll Cartagena)
[2017-10-05] MEDS ORDERED: VITAMIN B-121000 MC3 PO (09:57)
[2017-10-05] MEDS ORDERED: VITAMIN D31000 UNI2 PO (09:57)
[2017-10-05] MEDS ORDERED: PAIN & FEVER325 M1 PO (09:57)
[2017-10-05] MEDS ORDERED: FERROUS SULFAT325 M3 PO (09:58)
[2017-10-05] MEDS ORDERED: FLUTICASONE PRO16 GM NASB (09:59)
[2017-10-05] MEDS ORDERED: LOPERAMIDE2 M2 PO (10:01)
[2017-10-05] MEDS ORDERED: NAPROSYN500 M1 PO (10:02)
[2017-10-05] MEDS ORDERED: MAGNESIUM OXID250 M1 PO (10:02)
[2017-10-05] MEDS ORDERED: MIRALAX17 G1 PO (10:03)
[2017-10-05] MEDS ORDERED: SENNA8.6 M3 PO (10:04)
[2017-10-05 10:34] LABS: ABSOLUTE BASOPHIL COUNT 0 /CUMM (0.0-0.2); ABSOLUTE EOSINOPHIL COUNT 0.1 /CUMM (0.0-0.7); ABSOLUTE GRANULOCYTE CT 4.3 /CUMM (1.4-6.5); ABSOLUTE LYMPH COUNT 0.7 /CUMM (1.2-3.4); ABSOLUTE MONOCYTE COUNT 0.4 /CUMM (0.10-0.60); BASOPHIL % 0.8 % (0.0-2.0); EOSINOPHIL % 1.7 % (0-5); GRANULOCYTE % 78.4 % (42.2-75.2); HEMATOCRIT 41.3 % (37-47); MEAN CORPUSCULAR HGB CONC 33.2 G/DL (33.0-37.0); MEAN CORPUSCULAR VOLUME 96.5 FL (81.0-99.0); MEAN PLATELET VOLUME 9.6 FL (7.4-10.4); PLATELET COUNT 187 /CUMM (130-400); RBC DISTRIBUTION WIDTH 13.6 % (11.5-14.5); RED BLOOD CELL CT 4.28 /CUMM (4.20-5.40); WHITE BLOOD CELL COUNT 5.4 /CUMM (4.8-10.8)
--- NOTE | 2017-10-05 11:03 | RADIOLOGY REPORT ---
EXAMINATION: XR PORTABLE CHEST CLINICAL INFORMATION: Dyspnea. Rule out pneumonia. COMPARISON: Chest x-ray dated 09/19/2017, 09/10/2017 and 03/12/2010. TECHNIQUE: Portable AP semierect view of the chest was obtained. FINDINGS: The cardiomediastinal silhouette is enlarged, likely related to the AP semiupright portable technique. Ectasia and tortuosity of the aorta is also seen, unchanged. Lungs bilaterally are symmetrically mildly hyperinflated and demonstrate minimal bibasilar linear atelectatic changes, left greater than right. No focal consolidation, effusion or pneumothorax is seen. Bony structures are unremarkable. IMPRESSION: Findings suggestive of obstructive lung disease with mild bibasilar linear subsegmental atelectasis. No focal pneumonia.
--- NOTE | 2017-10-05 12:22 | History & Physical ---
Ronit Forde 10/05/17 1222: General Information and HPI MD Statement: I have seen and personally examined SEDRICK EM and documented this H&P. Source of Information: patient, family Exam Limitations: no limitations History of Present Illness: The patient is a 86 year old female with past medical history of hypertension, hyperlipidemia, COPD not on oxygen, GERD, hypothyroidism, and IBS presents to the hospital with CC of worsening dyspnea and productive cough for the past 2-3 days. Per patient she has been having increased SOB and production of sputum(yellow) for the past 2-3 days. Denies having fever/chills, chest pain. She used her nebulizers before presentation but did not have any relief. She was admitted to the hospital last month for similar complaints and 2 times after that visited the ED. She has h/o sick contact(a resident at her assissted living had URI). No h/o PE or DVT. Per patient's son, she was seen by Dr. Fontanez approximately a week prior to her presentation and was told that her shortness of breath is not cardiac related. She states that she has to sleep in a sitting position due to her shortness of breath. Denies smoking, etoh or illicit drugs. Per patient, she usually has difficulty swallowing her pills and has to have to with applesauce or soft food. Underwent swallow evaluation during her last admission in August which she passed for regular diet but with certain precautions. 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 FATHER (CHF, renal stones and gall stones). SON (DM and MD at 48 years). Psychosocial History Services at Home: None Review of Systems Review of Systems Constitutional: Denies: chills, diaphoresis, fever, malaise, weakness, unexplained weight loss. EENTM: Reports: no symptoms. Cardiovascular: Reports: edema, orthopena. Denies: chest pain, palpitations, peripheral edema, syncope. Respiratory: Reports: cough, orthopnea, short of breath, sputum production, wheezing. Denies : hemoptysis, stridor. GI: Reports: no symptoms. Genitourinary: Reports: no symptoms. Musculoskeletal: Reports: no symptoms. Skin: Reports: no symptoms. Neurological/Psychological: Reports: no symptoms. Hematologic/Endocrine: Reports: no symptoms. Immunologic/Allergic: Reports: no symptoms. All Other Systems: Reviewed and Negative Exam & Diagnostic Data Last 24 Hrs of Vital Signs/I&O Vital Signs Date Time Temp Pulse Resp B/P B/P Pulse O2 O2 Flow FiO2 Mean Ox Delivery Rate 10/05 1201 98.0 88 18 182/81 98 Nasal 2.0L Cannula 10/05 1052 Room Air Room Air 10/05 1022 94 10/05 0950 98.1 85 18 199/85 95 Room Air Intake & Output 10/05 1600 10/05 0800 10/05 0000 Intake Total Output Total Balance Patient 170 lb Weight Weight Reported by Patient Measurement Method Physical Exam General Appearance Alert, Oriented X3, Cooperative, No Acute Distress Skin No Rashes, No Breakdown Skin Temp/Moisture Exam: Warm/Dry HEENT Atraumatic, PERRLA, EOMI, Mucous Membr. moist/pink Neck JVD Lymphatic Cervical nl Cardiovascular Regular Rate, Normal S1, Normal S2, No Murmurs, Gallops, Rubs Lungs diminished breath sounds b/l Abdomen Normal Bowel Sounds, Soft, No Tenderness, No Hepatospenomegaly, No Masses Neurological Normal Speech, Strength at 5/5 X4 Ext, Normal Tone, Sensation Intact Extremities b/l LE edema Vascular Normal Pulses, Pulses Symmetrical Last 24 Hrs of Labs/Pawan: Laboratory Tests 10/05/17 1001: Anion Gap 6, Estimated GFR > 60, BUN/Creatinine Ratio 28.3 H, Glucose 93, Calcium 8.8, Total Bilirubin 1.0, AST 31, ALT 36, Alkaline Phosphatase 57, Troponin I 0.01, Frf-E-Xurmqarfglu Pept 655 H, Total Protein 6.6, Albumin 3.6, Globulin 3.0, Albumin/Globulin Ratio 1.2, CBC w Diff NO MAN DIFF REQ, RBC 4.28, MCV 96.5, MCH 32.0 H, MCHC 33.2, RDW 13.6, MPV 9.6, Gran % 78.4 H, Lymphocytes % 12.0 L, Monocytes % 7.1, Eosinophils % 1.7, Basophils % 0.8, Absolute Granulocytes 4.3, Absolute Lymphocytes 0.7 L, Absolute Monocytes 0.4, Absolute Eosinophils 0.1, Absolute Basophils 0 Microbiology 10/05 1010 BLOOD: Blood Culture - RECD 10/05 1001 BLOOD: Blood Culture - RECD Assessment/Plan Assessment: The patient is a 86 year old female with past medical history of hypertension, hyperlipidemia, COPD not on oxygen, GERD, hypothyroidism, and IBS presents to the hospital with CC of worsening dyspnea and productive cough for the past 2-3 days. Her symptoms improved after receiving supplemental oxygen and received the ED. Chest x-ray negative. Problem list #Dyspnea: Likely secondary to bronchitis/COPD exacerbation #Hyponatremia #Hypothyroidism Plan monitor blood pressure closely As Ranked By This Provider Problem List: 1. COPD exacerbation 2. Dyspnea Core Measures/Misc (02/05) Acute Coronary Syndrome ACS Diagnosis: No Congestive Heart Failure Congestive Heart Failure Diagnosis No Cerebrovascular Accident CVA/TIA Diagnosis: No VTE (View Protocol) VTE Risk Factors Age>40 No Mechanical VTE Prophylaxis d/t N/A MechProphylax Ordered No VTE Pharm Prophylaxis d/t NA PharmProphylax ordered Sepsis (View protocol) Sepsis Present: No MarleenHarvindermaribel 10/05/17 1508: General Information and HPI Allergies/Medications Home Med list Acetaminophen (Pain & Fever) 325 MG TABLET 1 TAB PO Q8P PRN PAIN (Reported) Aspirin (Ecotrin*) 81 MG TABLET.DR 1 TAB PO DAILY HEART/BLOOD (Reported) Budesonide/Formoterol Fumarate (Symbicort 160-4.5 Mcg Inhaler) 160 MCG-4.5 MCG/ ACTUATION HFA.AER.AD 2 PUF INH BID COPD . Cholecalciferol (Vitamin D3) 1,000 UNIT TABLET 1 TAB PO DAILY VITAMIN SUPPORT (Reported) Cyanocobalamin (Vitamin B-12) 1,000 MCG TABLET 1 TAB PO DAILY VITAMIN SUPPORT (Reported) Escitalopram Oxalate 10 MG TABLET 1 TAB PO DAILY MENTAL HEALTH (Reported) Ferrous Sulfate 325 MG (65 MG IRON) TABLET 1 TAB PO TID IRON, VITAMIN ( Reported) Fluticasone Propionate 50 MCG/ACTUATION SPRAY.SUSP 2 SPRAY NASB DAILY ALLERGIES (Reported) Levothyroxine Sodium 100 MCG TABLET 1 TAB PO DAILY AC THYROID (Reported) Loperamide HCl (Loperamide) 2 MG CAPSULE 1 CAP PO Q6 PRN Diarrhea (Reported) Losartan Potassium 25 MG TABLET 1 TAB PO DAILY BP (Reported) Lovastatin 20 MG TABLET 1 TAB PO DAILY CHOLESTEROL (Reported) Magnesium Oxide 250 MG TABLET 1 TAB PO DAILY SUPPLEMENT (Reported) Multiple Vitamin (Multivitamins) 1 EACH TABLET 1 TAB PO DAILY SUPPLEMENT ( Reported) Naproxen (Naprosyn) 500 MG TABLET 1 TAB PO BID PRN PAIN (Reported) Polyethylene Glycol 3350 (Miralax) 17 GRAM POWD.PACK 1 PAC PO DAILY CONSTIPATION (Reported) dissolve in water Prednisone 10 MG TABLET 1 TAB PO SEE ADMIN CRITERIA Acute Bronchits On 10/10-10/11 take 3 10/12-10/13 take 2 10/14-10/15 take 1. Sennosides (Senna) 8.6 MG TABLET 1 TAB PO DAILY PRN CONSTIPATION (Reported) Attending MD Review Statement Attending Statement Attending MD Statement: examined this patient, discuss w/resident/PA/PILOT PLANT TECHNICIAN, agreed w/resident/PA/PILOT PLANT TECHNICIAN, reviewed EMR data (avail) Attending Assessment/Plan: 86 yr old female with pmh of COPD not on home oxygen, hypertension, hyperlipidemia, GERD, hypothyroidism, and IBS who presented to the ER with c/c of sob for the past 2-3 days. Pt was recently seen in Dr Fontanez's office and was told she does not have CHF. Pt says she has hard time sleeping over the last few days. Pt was recently admitted to medicine for COPD exacerbation. Pt also was recently in the ED for similar complaints. Acute copd exacerbation- now feeling better after she got iv steroids in the ER . cont on nebs and iv steroids 40 q12h. B/l Leg swelling- will get d dimer level checked and if high will get doppler lower extremity. Her wells score is intermediate. d/w pt the care plan.
[2017-10-05 14:32] VITALS: BP 120/80
--- NOTE | 2017-10-05 14:59 | Admission Certification ---
Admission Certification Certification Statement - As attending physician, I certify that at the time of - admission, based on clinical presentation, severity of - symptoms, need for further diagnostic testing and - therapeutic interventions, and risk of adverse outcomes - without in-hospital treatment, in my clinical assessment, - this patient requires an acute hospital stay for a minimum - of two nights or longer. I have also considered psychsocial - factors such as support system, advanced age, financial - issues, cognitive issues, and failed out-patient treatments, - past re-admission history, safety of patient, and lack of - compliance as applicable. Specific rationale supporting this admission is: acute copd exacerbation.
--- NOTE | 2017-10-05 18:35 | ULTRASOUND REPORT ---
EXAMINATION: BILATERAL TRIPLEX SCANNING OF THE LOWER EXTREMITIES CLINICAL INFORMATION: Lower extremity swelling. COMPARISON: None. TECHNIQUE: Color-flow triplex imaging with spectral analysis and compression Doppler were performed on the lower extremities. FINDINGS: Respiratory variation, normal compression and augmented flow are noted throughout the lower extremities. The visualized common femoral vein, superficial femoral vein, profunda femoral vein, popliteal vein and mid calf peroneal and posterior tibial venous segments show no evidence of deep venous thrombosis. There is no Saunders's cyst. IMPRESSION: Normal triplex scan without evidence of deep venous thrombosis involving the lower extremities.
[2017-10-05 22:27] VITALS: BP 130/80
--- NOTE | 2017-10-06 07:32 | PN- Housestaff ---
Marques HATFIELD,[facility] 10/06/17 0732: Subjective Follow-up For: AECOPD Subjective: Ms Neumann was seen and examined this morning. She reports no issues overnight and was able to get some rest. Finds her breathing is bettter. She does continue to experience a cough, this is non productive. Denies and fever, chills, nausea or vomiting. Tolerating by mouth intake well. Review of Systems Constitutional: Reports: see HPI. Objective Last 24 Hrs of Vital Signs/I&O Vital Signs Date Time Temp Pulse Resp B/P B/P Pulse O2 O2 Flow FiO2 Mean Ox Delivery Rate 10/06 0904 80 108/50 10/05 2259 Nasal 2.0L Cannula 10/05 2232 97 Nasal 2.0L Cannula 10/05 2227 98.1 76 20 130/80 97 Room Air 10/05 1432 98.4 96 20 120/80 97 Room Air 10/05 1352 Nasal 2.0L Cannula 10/05 1336 87 176/81 05 1302 97.9 87 15 176/81 95 Nasal 2.0L Cannula 10/05 1201 98.0 88 18 182/81 98 Nasal 2.0L Cannula Intake & Output 10/06 1600 10/06 0800 10/06 0000 Intake Total 360 480 Output Total 300 Balance 360 180 Intake, Oral 360 480 Number 1 Bowel Movements Output, Urine 300 Patient 77.111 kg Weight Physical Exam General Appearance: Alert, Oriented X3 HEENT: Mucous Membr. moist/pink Cardiovascular: Regular Rate, Normal S1, Normal S2 Lungs: Expiratory wheezing Abdomen: Normal Bowel Sounds, Soft, No Tenderness Neurological: Normal Gait, Normal Speech Extremities: No Clubbing, No Cyanosis, No Edema Vascular: Normal Pulses Current Medications: Current Medications Sig/Yohannes Start time Last Medication Dose Route Stop Time Status Admin Albuterol Sulfate 3 ML TID 10/06 0900 AC 10/06 INH 1321 Aspirin Buffered 81 MG DAILY 10/05 1518 AC 10/06 PO 0904 Atorvastatin Calcium 5 MG 1700 10/05 1700 AC 10/05 PO 1652 Enoxaparin Sodium 40 MG DAILY 10/05 1548 AC 10/06 SC 0905 Ipratropium [place] 2.5 ML TID 10/06 0900 AC 10/06 INH 1322 Levothyroxine Sodium 0.1 MG DAILY AC 10/05 1518 AC 10/06 PO 0559 Losartan Potassium 25 MG DAILY 10/05 1238 AC 10/06 PO 0904 Methylprednisolone 40 MG Q12 10/06 0900 AC 10/06 IV 0903 Patient Medication 1 ED ONE ONE 10/06 1500 DC Teaching ED 10/06 1501 Potassium Chloride 40 MEQ ONCE ONE 10/06 1600 AC PO 10/06 1601 Last 24 Hrs of Lab/Pawan Results Last 24 Hrs of Labs/Mics: Laboratory Tests 10/06/17 1045: Anion Gap 6, Estimated GFR > 60, BUN/Creatinine Ratio 23.3 Assessment/Plan Assessment: Ms Neumann is a 86 year old female with past medical history of hypertension, hyperlipidemia, COPD not on oxygen, GERD, hypothyroidism, and IBS presents to the hospital with CC of worsening dyspnea and productive cough for the past 2-3 days. Her symptoms improved after receiving supplemental oxygen and received the ED. Chest x-ray negative. Problem list #AECOPD #Hyponatremia #Hypothyroidism Plan mouth based on symptoms. monitor blood pressure closely extremities which ruled out for any DVT. -Potassium was supplemented this a.m. Will monitor BEP on 10/07/2017 Problem List: 1. COPD exacerbation 2. Dyspnea Pain Ratin Pain Location: No Pain Pain Goal: Remain pain free Pain Plan: Tylenol PRN Tomorrow's Labs & Rationales: BEP: monitor NA and K Justen Hawley 10/06/17 1544: Attending MD Review Statement Attending Statement Attending MD Statement: examined this patient, discuss w/resident/PA/CPO, agreed w/resident/PA/CPO, reviewed EMR data (avail), discussed with nursing, discussed with case mgmt Attending Assessment/Plan: Acute copd exacerbation with hypoxic resp failure- still having wheezing and cough. Cont on iv steroids and TRC nebs. Hyponatremia- sodium 133 - better. dced hctz. cont to monitor sodium Hypokalemia- K 3.3, replace po and recheck in am. d/w pt the care plan
[2017-10-06 14:31] VITALS: BP 140/70
[2017-10-06 22:04] VITALS: BP 136/72
[2017-10-07 06:27] VITALS: BP 150/90
[2017-10-07 08:44] LABS: ABSOLUTE BASOPHIL COUNT 0 /CUMM (0.0-0.2); ABSOLUTE EOSINOPHIL COUNT 0 /CUMM (0.0-0.7); ABSOLUTE GRANULOCYTE CT 7.2 /CUMM (1.4-6.5); ABSOLUTE LYMPH COUNT 0.7 /CUMM (1.2-3.4); ABSOLUTE MONOCYTE COUNT 0.5 /CUMM (0.10-0.60); BASOPHIL % 0.2 % (0.0-2.0); EOSINOPHIL % 0.1 % (0-5); GRANULOCYTE % 85.3 % (42.2-75.2); HEMATOCRIT 40.1 % (37-47); MEAN CORPUSCULAR HGB 32.5 PG (27.0-31.0); MEAN CORPUSCULAR HGB CONC 33.6 G/DL (33.0-37.0); MEAN CORPUSCULAR VOLUME 96.8 FL (81.0-99.0); MEAN PLATELET VOLUME 10.1 FL (7.4-10.4); PLATELET COUNT 185 /CUMM (130-400); RED BLOOD CELL CT 4.14 /CUMM (4.20-5.40)
--- NOTE | 2017-10-07 09:23 | PN- Housestaff ---
Connie Denis 10/07/17 0922: Subjective Follow-up For: Questionable COPD exacerbation Reactive airway disease Complaints: no complaints Subjective: Patient was seen and examined this morning. She was lying comfortably in bed without any significant complaints. She does mention that her throat seems like slightly irritated and she has hard time bringing up phlegm. She remained hemodynamically stable. She is saturating fine on room air. On auscultation she was found to have bilateral wheezes. Of note she had significant exposures to chemicals in the past. Review of Systems Constitutional: Denies: chills, diaphoresis, fever. EENTM: Denies: blurred vision, eye pain. Cardiovascular: Denies: chest pain, edema. Respiratory: Reports: cough. Denies: hemoptysis. Gastrointestinal: Denies: bloating, constipation. Genitourinary: Denies: discharge, frequency. Musculoskeletal: Denies: gout, joint swelling. Objective Last 24 Hrs of Vital Signs/I&O Vital Signs Date Time Temp Pulse Resp B/P B/P Pulse O2 O2 Flow FiO2 Mean Ox Delivery Rate 10/07 1426 98.3 80 20 114/82 95 10/07 0906 86 150/90 10/07 0845 95 Room Air 10/07 0627 98.0 86 18 150/90 98 Room Air 10/06 2204 98.2 72 18 136/72 94 Room Air 10/06 1956 97 Nasal 1.0L Cannula 10/06 1600 Nasal 1.0L Cannula Intake & Output 10/07 1600 10/07 0800 10/07 0000 Intake Total 200 650 Output Total 200 Balance 200 450 Intake, Oral 200 650 Output, Urine 200 Physical Exam General Appearance: Alert, Oriented X3, Cooperative, No Acute Distress Cardiovascular: Regular Rate, Normal S1, Normal S2, No Murmurs Lungs: bilateral expiratory wheezes Abdomen: Soft, No Tenderness, No Hepatospenomegaly Current Medications: Current Medications Sig/Yohannes Start time Last Medication Dose Route Stop Time Status Admin Albuterol Sulfate 3 ML TID 10/06 0900 AC 10/07 INH 1400 Aspirin Buffered 81 MG DAILY 10/05 1518 AC 10/07 PO 0906 Atorvastatin Calcium 5 MG 1700 10/05 1700 AC 10/06 PO 1636 Enoxaparin Sodium 40 MG DAILY 10/05 1548 AC 10/07 SC 0906 Escitalopram Oxalate 10 MG 1800 10/07 1800 AC PO Escitalopram Oxalate 10 MG DAILY 10/07 1005 DC PO Guaifenesin 600 MG Q12 10/07 1219 AC 10/07 PO 1236 Ipratropium [place] 2.5 ML TID 10/06 0900 DC 10/07 INH 0844 Levothyroxine Sodium 0.1 MG DAILY AC 10/05 1518 AC 10/07 PO 0553 Losartan Potassium 25 MG DAILY 10/05 1238 AC 10/07 PO 0906 Methylprednisolone 40 MG Q12 10/06 0900 AC 10/07 IV 0906 Patient Medication 1 ED ONE ONE 10/06 1500 DC Teaching ED 10/06 1501 Potassium Chloride 40 MEQ ONCE ONE 10/06 1600 DC 10/06 PO 10/06 1601 1636 Last 24 Hrs of Lab/Pawan Results Last 24 Hrs of Labs/Mics: Laboratory Tests 10/07/17 0740: Anion Gap 5, Estimated GFR > 60, BUN/Creatinine Ratio 21.7, CBC w Diff NO MAN DIFF REQ, RBC 4.14 L, MCV 96.8, MCH 32.5 H, MCHC 33.6, RDW 14.0, MPV 10.1, Gran % 85.3 H, Lymphocytes % 8.5 L, Monocytes % 5.9, Eosinophils % 0.1, Basophils % 0.2, Absolute Granulocytes 7.2 H, Absolute Lymphocytes 0.7 L, Absolute Monocytes 0.5, Absolute Eosinophils 0, Absolute Basophils 0 Assessment/Plan Assessment: Ms Neumann is a 86 year old female with past medical history of hypertension, hyperlipidemia, COPD not on oxygen, GERD, hypothyroidism, and IBS presents to the hospital with CC of worsening dyspnea and productive cough for the past 2-3 days. Her symptoms improved after receiving supplemental oxygen and received the ED. Chest x-ray negative. Problem list #?AECOPD/interstitial lung disease needs to ruled out #Hyponatremia improving #Hypothyroidism Plan was called on family request and will follow his recommendations. monitor blood pressure closely negative for evidence of DVT. -We will get a CAT scan of the chest to rule out interstitial lung disease given her significant history of chemical exposure in the past. Patient needs to be follow-up with Dr. Vazquez as outpatient. Problem List: 1. COPD exacerbation 2. Dyspnea Pain Ratin Pain Location: na Pain Goal: Remain pain free Pain Plan: tylenol Tomorrow's Labs & Rationales: cbc and bep Hawley,[place] 10/07/17 1501: Attending MD Review Statement Attending Statement Attending MD Statement: examined this patient, discuss w/resident/PA/PARTNER MANAGER, agreed w/resident/PA/PARTNER MANAGER, reviewed EMR data (avail), discussed with nursing Attending Assessment/Plan: Acute copd exacerbation and acute hypoxic resp failure- on room air now. Seen by pulmonary . d/w dr Vazquez. Will get CT chest without contrast. Hyponatremia - resolved. sodium 136. will resume lexapro and reheck sodium in am . d/w pt the care plan.
[2017-10-07 10:58] LABS: WHITE BLOOD CELL COUNT 8.4 /CUMM (4.8-10.8)
--- NOTE | 2017-10-07 13:54 | Cons- Pulmonary ---
General Information and HPI Consulting Request Date of Consult: 10/07/17 Requested By: Family/Dr. Hawley Reason for Consult: dyspnea, wheezing Source of Information: patient Exam Limitations: no limitations History of Present Illness: Consultation is requested for an 86-year-old woman. Patient has been admitted for dyspnea and wheezing. Her pulmonary medical history includes having a history of remote bronchitis she was at the time treated by over a decade ago. She does not carry a diagnosis of COPD per the patient. At the time she was diagnosed with bronchitis treated with Spiriva that caused a rash. Ever since she's been off inhalers without any issues. Ever since Mother's Day she developed a dry cough with wheezing and exertional dyspnea that has progressively worsened until admission. She does not get bronchitis routinely. She was also recently evaluated by Dr. Fontanez and was no suspicion of congestive heart disease at the time. She has not had any CAT scan guided imaging recently. She does not have any pulmonary function testing on file as well. Her environmental exposures are significant. 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 She then worked in a [employer] facility and has been exposed to fumes there. Office was on top of the garage and she had frequent exposure including secondhand smoke and fumes. She has a personal smoking history that is quite remote and quit when she was 34 years old. Her chest x-ray is without infiltrates however shows hyperinflation. There is also subsegmental atelectasis. She does not have any leukocytosis or fevers. Her echo in August showed moderate aortic sclerosis. Normal ejection fraction. No evidence of pulmonary hypertension. She feels somewhat better rest with reduced wheezing, minimal cough, no leg edema at this time, no chest pain no nausea no vomiting no diarrhea no constipation. She does however continues to have exertional dyspnea. Allergies/Medications Allergies: Coded Allergies: linaclotide (From LINZESS) (Severe, WHEEZING, SOB 09/10/17) tiotropium (UNKNOWN 09/10/17) Home Med List: Acetaminophen (Pain & Fever) 325 MG TABLET 1 TAB PO Q8P PRN PAIN (Reported) Aspirin (Ecotrin*) 81 MG TABLET.DR 1 TAB PO DAILY HEART/BLOOD (Reported) Cholecalciferol (Vitamin D3) 1,000 UNIT TABLET 1 TAB PO DAILY VITAMIN SUPPORT (Reported) Cyanocobalamin (Vitamin B-12) 1,000 MCG TABLET 1 TAB PO DAILY VITAMIN SUPPORT (Reported) Escitalopram Oxalate 10 MG TABLET 1 TAB PO DAILY MENTAL HEALTH (Reported) Ferrous Sulfate 325 MG (65 MG IRON) TABLET 1 TAB PO TID IRON, VITAMIN ( Reported) Fluticasone Propionate 50 MCG/ACTUATION SPRAY.SUSP 2 SPRAY [place] DAILY ALLERGIES (Reported) Hydrochlorothiazide 12.5 MG CAPSULE 1 CAP PO DAILY DIURETIC/BP (Reported) Levothyroxine Sodium 100 MCG TABLET 1 TAB PO DAILY AC THYROID (Reported) Loperamide HCl (Loperamide) 2 MG CAPSULE 1 CAP PO Q6 PRN CONSTIPATION ( Reported) Losartan Potassium 25 MG TABLET 1 TAB PO DAILY BP (Reported) Lovastatin 20 MG TABLET 1 TAB PO DAILY CHOLESTEROL (Reported) Magnesium Oxide 250 MG TABLET 1 TAB PO DAILY SUPPLEMENT (Reported) Multiple Vitamin (Multivitamins) 1 EACH TABLET 1 TAB PO DAILY SUPPLEMENT ( Reported) Naproxen (Naprosyn) 500 MG TABLET 1 TAB PO BID PRN PAIN (Reported) Polyethylene Glycol 3350 (Miralax) 17 GRAM POWD.PACK 1 PAC PO DAILY CONSTIPATION (Reported) dissolve in water Sennosides (Senna) 8.6 MG TABLET 1 TAB PO DAILY PRN CONSTIPATION (Reported) Current Medications: Current Medications Sig/Yohannes Start time Last Medication Dose Route Stop Time Status Admin Albuterol Sulfate 3 ML TID 10/06 0900 AC 10/07 INH 0844 Aspirin Buffered 81 MG DAILY 10/05 1518 AC 10/07 PO 0906 Atorvastatin Calcium 5 MG 1700 10/05 1700 AC 10/06 PO 1636 Enoxaparin Sodium 40 MG DAILY 10/05 1548 AC 10/07 SC 0906 Escitalopram Oxalate 10 MG 1800 10/07 1800 AC PO Escitalopram Oxalate 10 MG DAILY 10/07 1005 DC PO Guaifenesin 600 MG Q12 10/07 1219 AC 10/07 PO 1236 Ipratropium [place] 2.5 ML TID 10/06 0900 AC 10/07 INH 0844 Levothyroxine Sodium 0.1 MG DAILY AC 10/05 1518 AC 10/07 PO 0553 Losartan Potassium 25 MG DAILY 10/05 1238 AC 10/07 PO 0906 Methylprednisolone 40 MG Q12 10/06 0900 AC 10/07 IV 0906 Patient Medication 1 ED ONE ONE 10/06 1500 DC Teaching ED 10/06 1501 Potassium Chloride 40 MEQ ONCE ONE 10/06 1600 DC 10/06 PO 10/06 1601 1636 Review of Systems Comments 18 point review of systems was performed and reviewed. Please see pertinent positives and pertinent negatives in the HPI. Otherwise ROS is negative. Past History Travel History Traveled to [place] past 21 day No Medical History Blood Transfusion Hx: No Neurological: NONE EENT: CATARACTS R EYE Cardiovascular: hypertension, hyperlipidemia Respiratory: COPD Gastrointestinal: GERD Hepatic: NONE Renal: urinary incontinence, UTI Musculoskeletal: ARTHRITIS Endocrine: HYPOTHYROID Blood Disorders: NONE Cancer(s): NONE MENTAL TESTER/Reproductive: NONE Surgical History Surgical History: non-contributory Family History Relations & Conditions If Any: MOTHER (CVA and DM). FATHER (CHF, renal stones and gall stones). SON (DM and MO at 48 years). Psychosocial History Where Do You Live? Assisted Living Services at Home: None Smoking Status: Former Smoker Exam & Diagnostic Data Last 24 Hrs of Vital Signs/I&O Vital Signs Date Time Temp Pulse Resp B/P B/P Pulse O2 O2 Flow FiO2 Mean Ox Delivery Rate 10/07 0906 86 150/90 10/07 0845 95 Room Air 10/07 0627 98.0 86 18 150/90 98 Room Air 10/06 2204 98.2 72 18 136/72 94 Room Air 10/06 1956 97 Nasal 1.0L Cannula 10/06 1600 Nasal 1.0L Cannula 10/06 1431 98.5 79 20 140/70 95 Nasal 2.5L Cannula Intake & Output 10/07 1600 10/07 0800 10/07 0000 Intake Total 200 650 Output Total 200 Balance 200 450 Intake, Oral 200 650 Output, Urine 200 Physical Exam Other Physical Findings: Generally - Awake, alert and comfortable without distress Head and neck - on room air Cardiovascular - S1, S2, no murmurs, rubs or gallops Lungs - rare rhonchi, prolonged expiratory phase Abdomen - Bowel sounds positive, soft, non-tender Extremities - without edema Last 48 Hrs of Labs/Pawan: Laboratory Tests 10/07/17 0740: Anion Gap 5, Estimated GFR > 60, BUN/Creatinine Ratio 21.7, CBC w Diff NO MAN DIFF REQ, RBC 4.14 L, MCV 96.8, MCH 32.5 H, MCHC 33.6, RDW 14.0, MPV 10.1, Gran % 85.3 H, Lymphocytes % 8.5 L, Monocytes % 5.9, Eosinophils % 0.1, Basophils % 0.2, Absolute Granulocytes 7.2 H, Absolute Lymphocytes 0.7 L, Absolute Monocytes 0.5, Absolute Eosinophils 0, Absolute Basophils 0 10/06/17 1045: Anion Gap 6, Estimated GFR > 60, BUN/Creatinine Ratio 23.3 10/05/17 1439: D-Dimer High Sensitivty Cancelled Assessment/Plan Impression/Plan: Impression 86 year old woman * acute bronchitis with 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
[2017-10-07 14:26] VITALS: BP 114/82
--- NOTE | 2017-10-07 19:15 | CT SCAN REPORT ---
EXAMINATION: CT CHEST WITHOUT CONTRAST CLINICAL INFORMATION: Shortness of breath and wheezing. COMPARISON: 09/10/2017. TECHNIQUE: Contiguous axial thin section helical images of the chest were performed without contrast. The data set was reformatted in the coronal and sagittal planes and reviewed on an independent workstation. DLP: 394 mGy-cm. FINDINGS: The heart is of normal size. There is no pericardial effusion. There is neither mediastinal, hilar nor axillary lymphadenopathy. There are no chest wall masses. Review of lung windows demonstrates that there are neither pleural effusions nor pneumothoraces. There is stable scarring within the right middle lobe. There is a stable bleb within the medial segment right middle lobe measuring 5.3 cm. There is groundglass opacification present within the lateral and posterior basal segments of the right lower lobe as well as the posterior basal segment of the left lower lobe. There are no pulmonary parenchymal nodules. Images of the upper abdomen demonstrate that the liver is of normal size and attenuation without focal lesions. Normal adrenal glands are identified. Bone windows: Neither sclerotic nor lytic bone lesions are identified. 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 Stable scarring and bleb within the right middle lobe.
[2017-10-07 22:33] VITALS: BP 120/82
[2017-10-08 06:20] VITALS: BP 156/90
[2017-10-08 08:33] LABS: ABSOLUTE BASOPHIL COUNT 0 /CUMM (0.0-0.2); ABSOLUTE EOSINOPHIL COUNT 0 /CUMM (0.0-0.7); ABSOLUTE GRANULOCYTE CT 5.1 /CUMM (1.4-6.5); ABSOLUTE LYMPH COUNT 1.2 /CUMM (1.2-3.4); ABSOLUTE MONOCYTE COUNT 0.6 /CUMM (0.10-0.60); BASOPHIL % 0.4 % (0.0-2.0); EOSINOPHIL % 0.5 % (0-5); GRANULOCYTE % 72.9 % (42.2-75.2); HEMATOCRIT 42.5 % (37-47); MEAN CORPUSCULAR HGB 32.7 PG (27.0-31.0); MEAN CORPUSCULAR HGB CONC 33.7 G/DL (33.0-37.0); MEAN PLATELET VOLUME 10.1 FL (7.4-10.4); PLATELET COUNT 189 /CUMM (130-400); RBC DISTRIBUTION WIDTH 14.2 % (11.5-14.5); RED BLOOD CELL CT 4.38 /CUMM (4.20-5.40)
--- NOTE | 2017-10-08 11:16 | PN- Pulmonary ---
Subjective HPI/Critical Care Issues: pt seen and examined cough is minimal with an occasional yellow phlegm dyspnea primarily on exertion improving no cp no n/v/d/c no headaches Objective Current Medications: Current Medications Sig/Yohannes Start time Last Medication Dose Route Stop Time Status Admin Albuterol Sulfate 3 ML TID 10/06 0900 AC 10/08 INH 0808 Aspirin Buffered 81 MG DAILY 10/05 1518 AC 10/08 PO 0905 Atorvastatin Calcium 5 MG 1700 10/05 1700 AC 10/07 PO 1556 Budesonide/ 2 PUF BID 10/08 1044 AC Formoterol Fumarate INH Enoxaparin Sodium 40 MG DAILY 10/05 1548 AC 10/08 SC 0905 Escitalopram Oxalate 10 MG 1800 10/07 1800 AC 10/07 PO 1558 Guaifenesin 600 MG Q12 10/07 1219 DC 10/08 PO 0905 Guaifenesin/Codeine 10 ML Q4P PRN 10/08 1000 AC Phosphate PO Ipratropium [place] 2.5 ML TID 10/06 0900 DC 10/07 INH 0844 Levothyroxine Sodium 0.1 MG DAILY AC 10/05 1518 AC 10/08 PO 0605 Losartan Potassium 25 MG DAILY 10/05 1238 AC 10/08 PO 0905 Methylprednisolone 40 MG Q12 10/06 0900 DC 10/08 IV 0905 Prednisone 40 MG DAILY 10/08 1044 AC PO Vital Signs & I&O Last 24 Hrs of Vitals and I&O: Vital Signs Date Time Temp Pulse Resp B/P B/P Pulse O2 O2 Flow FiO2 Mean Ox Delivery Rate 10/08 0905 67 156/90 10/08 0812 95 Room Air 10/08 0620 98.7 67 16 156/90 94 Room Air 10/08 0321 Room Air 10/08 0000 Room Air 10/07 2233 97.9 81 20 120/82 94 Room Air 10/07 1950 96 Room Air 10/07 1426 98.3 80 20 114/82 95 Intake & Output 10/08 1600 10/08 0800 10/08 0000 Intake Total 100 400 Output Total Balance 100 400 Intake, Oral 100 400 Number 0 Bowel Movements Exam Other Physical Findings: Generally - Awake, alert and comfortable without distress Head and neck - on room air Cardiovascular - S1, S2, no murmurs, rubs or gallops Lungs - improved rhonchi Abdomen - Bowel sounds positive, soft, non-tender Extremities - without edema Results Last 24 Hrs of Lab Results: Laboratory Tests 10/08/17 0708: Anion Gap 4 L, Estimated GFR > 60, BUN/Creatinine Ratio 24.0, CBC w Diff NO MAN DIFF REQ, RBC 4.38, MCV 97.0, MCH 32.7 H, MCHC 33.7, RDW 14.2, MPV 10.1, Gran % 72.9, Lymphocytes % 17.8 L, Monocytes % 8.4, Eosinophils % 0.5, Basophils % 0.4 , Absolute Granulocytes 5.1, Absolute Lymphocytes 1.2, Absolute Monocytes 0.6, Absolute Eosinophils 0, Absolute Basophils 0 Impression/Plan Impression/Plan Impression/Plan: Impression 86 year old woman * acute bronchitis with 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
--- NOTE | 2017-10-08 12:21 | Discharge Summary ---
Visit Information Visit Dates Admission Date: 10/05/17 Discharge Date: 10/09/2017 Hospital Course Course Attending Physician: Marleen HATFIELD,Justen Mazariegos Primary Care Physician: Alex Walter [facility] Hospital Course: Ms Neumann is a 86 year old female with past medical history of hypertension, hyperlipidemia, COPD not on oxygen, GERD, hypothyroidism, and IBS who presented to the hospital with CC of worsening dyspnea and productive cough for the past 2 -3 days prior to admission. Prior to coming in, the patient had seen her extension professor Dr. Fontanez. There was no suspicion of any CHF that time. Vitals: temperature 98.1, pulse 85, respirations 18, blood pressure 199/85 pulse ox 95% on room air. Labs WBC 5.4, H&H 13.7 41.3, platelets 187, sodium 1:30, potassium 3.8, chloride 90, bicarbonate 33. BUN:17, creatinine 0.6, proBNP 655. She was admitted to the Gen[facility] medical service and below is a summary of the care she received under us. Problem list: #AECOPD #Acute bronchitis with inflammatory/post infectious reactive airway disease #History of environmental exposures in the work place #Hyponatremia #Hypothyroidism Patient was initially started on methylprednisolone 40 mg every 12 hours. She was also maintained on nebulizer treatments. On 10/08/2017 we began the patient on prednisone by mouth with a taper every 2 days. She was also begun on Symbicort was 160/4.5 2 puffs twice a day. We discontinued the patient's ipratropium owing to history of a rash. Patient was given instructions to follow-up with the industrial methods consultant as an outpatient. She will likely require outpatient pulmonary function tests. CT scan of the chest was also done to rule out interstitial lung disease. On admission, patient did have bilateral lower extremity edema and a Doppler ultrasound was done to rule out a DVT. Results of this have been attached on this report. Hydrochlorothiazide was stopped owing to the fact that she was hyponatremic. Other blood pressure medications were continued. Patient was a full code of the course of admission. Allergies: Coded Allergies: linaclotide (From LINZESS) (Severe, WHEEZING, SOB 09/10/17) tiotropium (UNKNOWN 09/10/17) Pertinent Lab Results: SERVICE DATE: 10/07/17- EXAM TYPE: CAT - CT CHEST WO IV CONTRAST EXAMINATION: CT CHEST WITHOUT CONTRAST CLINICAL INFORMATION: Shortness of breath and wheezing. COMPARISON: 09/10/2017. TECHNIQUE: Contiguous axial thin section helical images of the chest were performed without contrast. The data set was reformatted in the coronal and sagittal planes and reviewed on an independent workstation. DLP: 394 mGy-cm. FINDINGS: The heart is of normal size. There is no pericardial effusion. There is neither mediastinal, hilar nor axillary lymphadenopathy. There are no chest wall masses. Review of lung windows demonstrates that there are neither pleural effusions nor pneumothoraces. There is stable scarring within the right middle lobe. There is a stable bleb within the medial segment right middle lobe measuring 5.3 cm. There is groundglass opacification present within the lateral and posterior basal segments of the right lower lobe as well as the posterior basal segment of the left lower lobe. There are no pulmonary parenchymal nodules. Images of the upper abdomen demonstrate that the liver is of normal size and attenuation without focal lesions. Normal adrenal glands are identified. Bone windows: Neither sclerotic nor lytic bone lesions are identified. IMPRESSION: Bibasilar streaky and groundglass opacification likely sales representative publications of atelectasis. Stable scarring and bleb within the right middle lobe. DICTATED BY: Michael Lugo MD SERVICE DATE: 10/05/17- EXAM TYPE: US - US-EXT BILAT VENOUS DOPPLER EXAMINATION: BILATERAL TRIPLEX SCANNING OF THE LOWER EXTREMITIES CLINICAL INFORMATION: Lower extremity swelling. COMPARISON: None. TECHNIQUE: Color-flow triplex imaging with spectral analysis and compression Doppler were performed on the lower extremities. FINDINGS: Respiratory variation, normal compression and augmented flow are noted throughout the lower extremities. The visualized common femoral vein, superficial femoral vein, profunda femoral vein, popliteal vein and mid calf peroneal and posterior tibial venous segments show no evidence of deep venous thrombosis. There is no Saunders's cyst. IMPRESSION: Normal triplex scan without evidence of deep venous thrombosis involving the lower extremities. DICTATED BY: Chester Parrish MD SERVICE DATE: 10/05/170944 EXAM TYPE: RAD - XRY-PORTABLE CHEST XRAY EXAMINATION: XR PORTABLE CHEST CLINICAL INFORMATION: Dyspnea. Rule out pneumonia. COMPARISON: Chest x-ray dated 09/19/2017, 09/10/2017 and 03/12/2010. TECHNIQUE: Portable AP semierect view of the chest was obtained. FINDINGS: The cardiomediastinal silhouette is enlarged, likely related to the AP semiupright portable technique. Ectasia and tortuosity of the aorta is also seen, unchanged. Lungs bilaterally are symmetrically mildly hyperinflated and demonstrate minimal bibasilar linear atelectatic changes, left greater than right. No focal consolidation, effusion or pneumothorax is seen. Bony structures are unremarkable. IMPRESSION: Findings suggestive of obstructive lung disease with mild bibasilar linear subsegmental atelectasis. No focal pneumonia. DICTATED BY: Marta Pak MD SERVICE DATE: 10/07/17- EXAM TYPE: CAT - CT CHEST WO IV CONTRAST EXAMINATION: CT CHEST WITHOUT CONTRAST CLINICAL INFORMATION: Shortness of breath and wheezing. COMPARISON: 09/10/2017. TECHNIQUE: Contiguous axial thin section helical images of the chest were performed without contrast. The data set was reformatted in the coronal and sagittal planes and reviewed on an independent workstation. DLP: 394 mGy-cm. FINDINGS: The heart is of normal size. There is no pericardial effusion. There is neither mediastinal, hilar nor axillary lymphadenopathy. There are no chest wall masses. Review of lung windows demonstrates that there are neither pleural effusions nor pneumothoraces. There is stable scarring within the right middle lobe. There is a stable bleb within the medial segment right middle lobe measuring 5.3 cm. There is groundglass opacification present within the lateral and posterior basal segments of the right lower lobe as well as the posterior basal segment of the left lower lobe. There are no pulmonary parenchymal nodules. Images of the upper abdomen demonstrate that the liver is of normal size and attenuation without focal lesions. Normal adrenal glands are identified. Bone windows: Neither sclerotic nor lytic bone lesions are identified. IMPRESSION: Bibasilar streaky and groundglass opacification likely sales representative publications of atelectasis. Stable scarring and bleb within the right middle lobe. DICTATED BY: Michael Lugo MD Disposition Summary Disposition Principal Diagnosis: AECOPD Additional Diagnosis: #Hyponatremia #Hypothyroidism Discharge Disposition: home health services Discharge Instructions General Discharge Information Code Status: Full Code Patient's Diet: Heart Healthy (fluid restriction 1200 mL) Patient's Activity: As Tolerated Follow-Up Instructions/Appts: Follow-up with your primary care physician within 7 days. Please follow up with the industrial methods consultant within one to two weeks, you might require outpatient PFTs. We have provided you with a referral. Medications at Discharge Discharge Medications: Stop taking the following medications: Hydrochlorothiazide (Hydrochlorothiazide) 12.5 MG CAPSULE ORAL DAILY Qty = 90 Continue taking these medications: Lovastatin (Lovastatin) 20 MG TABLET 1 Tablet ORAL DAILY Qty = 90 Comments: LAST TAKEN: 10/08/17 @ 5 PM Levothyroxine Sodium (Levothyroxine Sodium) 100 MCG TABLET 1 Tablet ORAL DAILY BEFORE BREAKFAST Qty = 90 Comments: LAST TAKEN: 10/09/17 @ 6 AM Losartan Potassium (Losartan Potassium) 25 MG TABLET 1 Tablet ORAL DAILY Qty = 90 Comments: LAST TAKEN: 10/09/17 @ 9 AM Escitalopram Oxalate (Escitalopram Oxalate) 10 MG TABLET 1 Tablet ORAL DAILY Qty = 90 Comments: LAST TAKEN: 10/08/17 @ 6 PM Aspirin (Ecotrin*) 81 MG TABLET.DR 1 Tablet ORAL DAILY Comments: LAST TAKEN: 10/09/17 @ 9AM Multiple Vitamin (Multivitamins) 1 EACH TABLET 1 Tablet ORAL DAILY Comments: NOT GIVEN Acetaminophen (Pain & Fever) 325 MG TABLET 1 Tablet ORAL EVERY 8 HOURS NEEDED as needed for PAIN Comments: NOT GIVEN Cholecalciferol (Vitamin D3) 1,000 UNIT TABLET 1 Tablet ORAL DAILY Comments: NOT GIVEN Cyanocobalamin (Vitamin B-12) 1,000 MCG TABLET 1 Tablet ORAL DAILY Comments: NOT GIVEN Ferrous Sulfate (Ferrous Sulfate) 325 MG (65 MG IRON) TABLET 1 Tablet ORAL THREE TIMES DAILY Comments: NOT GIVEN Fluticasone Propionate (Fluticasone Propionate) 50 MCG/ACTUATION SPRAY.SUSP 2 [place] Both sides of nose DAILY Qty = 16 Comments: NOT GIVEN Loperamide HCl (Loperamide) 2 MG CAPSULE 1 Capsule ORAL EVERY SIX HOURS as needed for Diarrhea Comments: NOT GIVEN Magnesium Oxide (Magnesium Oxide) 250 MG TABLET 1 Tablet ORAL DAILY Comments: NOT GIVEN Naproxen (Naprosyn) 500 MG TABLET 1 Tablet ORAL TWICE DAILY as needed for PAIN Comments: NOT GIVEN Polyethylene Glycol 3350 (Miralax) 17 GRAM POWD.PACK 1 Packet ORAL DAILY Instructions: dissolve in water Comments: NOT GIVEN Sennosides (Senna) 8.6 MG TABLET 1 Tablet ORAL DAILY as needed for CONSTIPATION Comments: NOT GIVEN Start taking the following new medications: Budesonide/Formoterol Fumarate (Symbicort 160-4.5 Mcg Inhaler) 160 MCG-4.5 MCG/ ACTUATION HFA.AER.AD 2 Puff Inhale through mouth TWICE DAILY Qty = 1 No Refills Instructions: . Comments: LAST TAKEN: 10/09/17 @ 9AM Prednisone (Prednisone) 10 MG TABLET 1 Tablet ORAL SEE INSTRUCTIONS Qty = 12 No Refills Instructions: On 10/10-10/11 take 3 10/12-10/13 take 2 10/14-10/15 take 1. Comments: NOT GIVEN Copies To: Saba HATFIELD,Alex Barrientos; Huseyin HATFIELD,Carlitos Galan; Taylor HATFIELD,Candido Attending MD Review Statement Documenting Attending: Marleen HATFIELD,Justen Mazariegos Other Findings: agree with the discharge plan
--- NOTE | 2017-10-08 13:51 | PN- Att Addend ---
Assessment/Plan Assessment/Plan 86 yr old female with pmh of COPD not on home oxygen, hypertension, hyperlipidemia, GERD, hypothyroidism, and IBS who presented to the ER with c/c of sob for the past 2-3 days. Pt was recently seen in Dr Fontanez's office and was told she does not have CHF. Pt says she has hard time sleeping over the last few days. Pt was recently admitted to medicine for COPD exacerbation. Pt also was recently in the ED for similar complaints. Acute copd exacerbation- improving now. On room air. switched to po steroids 40mg po daily for now. CT chest showed some atelectasis and ground glass opacities. Appreciated pulm input. Will get PT consult in am. Hyponatremia- sodium 136. restarted on lexapro yesterday. tolerating it. will recheck sodium in am. DVT proph- on sc lovenox. Consult Acknowledgment - Thank you for your consult request. Review of Systems Review of Systems Constitutional: Denies: chills, fever. Cardiovascular: Denies: chest pain, palpitations. Respiratory: Reports: cough. GI: Denies: abdominal pain. Skin: Denies: jaundice. Neurological/Psychological: Denies: confusion. PHYSICAL EXAM Last 24hrs of Vital Signs Vital Signs Date Time Temp Pulse Resp B/P B/P Pulse O2 O2 Flow FiO2 Mean Ox Delivery Rate 10/08 0905 67 156/90 05 0812 95 Room Air 10/08 0620 98.7 67 16 156/90 94 Room Air 10/08 0321 Room Air 10/08 0000 Room Air 10/07 2233 97.9 81 20 120/82 94 Room Air 10/07 1950 96 Room Air 10/07 1426 98.3 80 20 114/82 95 Physical Exam General Appearance Alert, Oriented X3, Cooperative HEENT Atraumatic Cardiovascular Regular Rate, Normal S1, Normal S2 Lungs Clear to Auscultation Abdomen Soft, No Tenderness Neurological Normal Speech
--- NOTE | 2017-10-08 15:03 | Patient Discharge Instructions ---
Discharge Instructions General Discharge Information You were seen/treated for: AECOPD Special Instructions: Follow-up with your primary care physician within 7 days. Please follow up with the refrigeration brazer/solderer within one to two weeks, you might require outpatient PFTs. We have provided you with a referral. Acute Coronary Syndrome Inclusion Criteria At DC or during hospital stay patient has or had the following: ACS DIAGNOSIS No Discharge Core Measures Meds if any: Prescribed or Continued at Discharge VERENA/ARB if EF <40% No Aspirin No Beta-Anum No Meds if any: NOT Prescribed or Continued at Discharge Congestive Heart Failure Inclusion Criteria At DC or during hospital stay patient has or had the following: CHF DIAGNOSIS No Discharge Core Measures Meds if any: Prescribed or Continued at Discharge Meds if any: NOT Prescribed or Continued at Discharge Cerebrovascular accident Inclusion Criteria At DC or during hospital stay patient has or had the following: CVA/TIA Diagnosis No Discharge Core Measures Meds if any: Prescribed or Continued at Discharge Meds if any: NOT Prescribed or Continued at Discharge Venous thromboembolism Inclusion Criteria VTE Diagnosis No VTE Type NONE VTE Confirmed by (Test) NONE Discharge Core Measures - Per Current guidelines, there needs to be overlap - treatment for the first 5 days of Warfarin therapy. - If discharged on Warfarin prior to 5 days of - overlap therapy, the patient will need to be - assessed for post discharge needs including - *Post discharge parental anticoagulation - *Warfarin and/or parental anticoagulation education - *Follow up date to check INR post discharge At least 5 days overlap therapy as Inpatient No Meds if any: Prescribed or Continued at Discharge Note: Overlap Therapy is Warfarin and Anticoagulant Meds if any: NOT Prescribed or Continued at Discharge
[2017-10-08] MEDS ORDERED: SYMBICORT 16010.2 GM INH (15:05)
[2017-10-08 15:15] VITALS: BP 118/60
[2017-10-08] MEDS ORDERED: PREDNISONE10 M2 PO (19:29)
[2017-10-08 22:05] VITALS: BP 160/70
[2017-10-09 06:20] VITALS: BP 156/80
--- NOTE | 2017-10-09 07:21 | PN- Housestaff ---
Marques HATFIELD,[facility] 10/09/17 0721: Subjective Follow-up For: Acute copd exacerbation Subjective: Ms Neumann was seen and examined this morning. She is resting comfortably in bed. Denies any issues overnight. States that she was able to get some rest. She denies any fever, chills, nausea, vomiting. States that dyspnea has improved. Has been tolerating by mouth intake well although she states she has not had a bowel movement since admission. Review of Systems Constitutional: Reports: see HPI. Objective Last 24 Hrs of Vital Signs/I&O Vital Signs Date Time Temp Pulse Resp B/P B/P Pulse O2 O2 Flow FiO2 Mean Ox Delivery Rate 10/09 1036 98.5 68 18 156/80 10/09 0823 94 Room Air 10/09 0620 98.5 68 18 156/80 95 Room Air 10/08 2205 97.8 70 19 160/70 95 10/08 1909 95 Room Air 10/08 1515 98.0 81 18 118/60 95 Intake & Output 10/09 1600 10/09 0800 10/09 0000 Intake Total 250 250 Output Total 400 Balance -400 250 250 Intake, IV 10 10 Intake, Oral 240 240 Number 1 0 Bowel Movements Output, Urine 400 Patient 78.585 kg Weight Physical Exam General Appearance: Alert, Oriented X3, Cooperative Cardiovascular: Regular Rate, Normal S1, Normal S2 Lungs: Normal Air Movement Abdomen: Normal Bowel Sounds, Soft, No Tenderness Neurological: Normal Speech Extremities: No Edema Current Medications: Current Medications Sig/Yohannes Start time Last Medication Dose Route Stop Time Status Admin Albuterol Sulfate 3 ML TID 10/06 0900 AC 10/09 INH 0817 Aspirin Buffered 81 MG DAILY 10/05 1518 AC 10/09 PO 0934 Atorvastatin Calcium 5 MG 1700 10/05 1700 AC 10/08 PO 1738 Bisacodyl 10 MG ONCE ONE 10/09 0930 DC 10/09 LA 10/09 0931 0934 Budesonide/ 2 PUF BID 10/08 1044 AC 10/09 Formoterol Fumarate INH 0934 Enoxaparin Sodium 40 MG DAILY 10/05 1548 AC 10/09 SC 0935 Escitalopram Oxalate 10 MG 1800 10/07 1800 AC 10/08 PO 1738 Guaifenesin/Codeine 10 ML Q4P PRN 10/08 1000 AC 10/08 Phosphate PO 2334 Levothyroxine Sodium 0.1 MG DAILY AC 10/05 1518 AC 10/09 PO 0627 Losartan Potassium 25 MG DAILY 10/05 1238 AC 10/09 PO 1036 Prednisone 40 MG DAILY 10/09 0900 AC 10/09 PO 0934 Prednisone 40 MG DAILY 10/08 1044 DC PO Last 24 Hrs of Lab/Pawan Results Last 24 Hrs of Labs/Mics: Laboratory Tests 10/09/17 0715: Anion Gap 5, Estimated GFR > 60, BUN/Creatinine Ratio 22.9, CBC w Diff NO MAN DIFF REQ, RBC 4.20, MCV 97.6, MCH 32.6 H, MCHC 33.4, RDW 14.1, MPV 10.2, Gran % 67.9, Lymphocytes % 21.4, Monocytes % 9.3, Eosinophils % 1.0, Basophils % 0.4, Absolute Granulocytes 4.0, Absolute Lymphocytes 1.3, Absolute Monocytes 0.5, Absolute Eosinophils 0.1, Absolute Basophils 0 Assessment/Plan Assessment: Ms Neumann is a 86 year old female with past medical history of hypertension, hyperlipidemia, COPD not on oxygen, GERD, hypothyroidism, and IBS presents to the hospital with CC of worsening dyspnea and productive cough for the past 2-3 days. Her symptoms improved after receiving supplemental oxygen and received the ED. Chest x-ray negative. Problem list #AECOPD/Acute Bronchitis #Hyponatremia #Hypothyroidism #History of environmental exposures Plan The weekend she was transitioned to by mouth prednisone which she is currently receiving. Currenlty on PO 40 mg, this will be titrated down x 2 days. monitor blood pressure closely -Worked with physical therapy will likely be discharged later today. Problem List: 1. COPD exacerbation Pain Ratin Pain Location: No Pain Pain Goal: Remain pain free Pain Plan: Tylenol prn Tomorrow's Labs & Rationales: No labs: Pending DC Justen Hawley 10/09/17 1335: Attending MD Review Statement Attending Statement Attending MD Statement: examined this patient, discuss w/resident/PA/[employer] HEATER TENDER, agreed w/resident/PA/[employer] HEATER TENDER, reviewed EMR data (avail), discussed with nursing, discussed with case mgmt Attending Assessment/Plan: pt doing ok and breathing better ,cont with current management for copd. PT recommending short term rehab. d/w case management and plan is to find place for short term rehab for the patient. d/w pt the care plan.
[2017-10-09 08:46] LABS: ABSOLUTE BASOPHIL COUNT 0 /CUMM (0.0-0.2); ABSOLUTE EOSINOPHIL COUNT 0.1 /CUMM (0.0-0.7); ABSOLUTE LYMPH COUNT 1.3 /CUMM (1.2-3.4); ABSOLUTE MONOCYTE COUNT 0.5 /CUMM (0.10-0.60); BASOPHIL % 0.4 % (0.0-2.0); GRANULOCYTE % 67.9 % (42.2-75.2); MEAN CORPUSCULAR HGB 32.6 PG (27.0-31.0); MEAN CORPUSCULAR HGB CONC 33.4 G/DL (33.0-37.0); MEAN CORPUSCULAR VOLUME 97.6 FL (81.0-99.0); MEAN PLATELET VOLUME 10.2 FL (7.4-10.4); PLATELET COUNT 186 /CUMM (130-400); RBC DISTRIBUTION WIDTH 14.1 % (11.5-14.5); WHITE BLOOD CELL COUNT 5.9 /CUMM (4.8-10.8)
[2017-10-09 14:01] VITALS: BP 122/60
[2017-10-09] MEDS ORDERED: PREDNISONE10 M2 PO (15:20)
[2017-10-09] MEDS ORDERED: SYMBICORT 16010.2 GM INH (15:20)
--- NOTE | 2017-10-09 15:47 | PN- Pulmonary ---
Subjective HPI/Critical Care Issues: Patient seen and examined this morning. She continues to improve with respect to her dyspnea. She is coughing much less with virtually no phlegm at this time. No fevers no chills. No nausea, no vomiting, no diarrhea, no headache, no chest pain. Objective Current Medications: Current Medications Sig/Yohannes Start time Last Medication Dose Route Stop Time Status Admin Albuterol Sulfate 3 ML TID 10/06 0900 AC 10/09 INH 1420 Aspirin Buffered 81 MG DAILY 10/05 1518 AC 10/09 PO 0934 Atorvastatin Calcium 5 MG 1700 10/05 1700 AC 10/08 PO 1738 Bisacodyl 10 MG ONCE ONE 10/09 0930 DC 10/09 ID 10/09 0931 0934 Budesonide/ 2 PUF BID 10/08 1044 AC 10/09 Formoterol Fumarate INH 0934 Enoxaparin Sodium 40 MG DAILY 10/05 1548 AC 10/09 SC 0935 Escitalopram Oxalate 10 MG 1800 10/07 1800 AC 10/08 PO 1738 Guaifenesin/Codeine 10 ML Q4P PRN 10/08 1000 AC 10/08 Phosphate PO 2334 Levothyroxine Sodium 0.1 MG DAILY AC 10/05 1518 AC 10/09 PO 0627 Losartan Potassium 25 MG DAILY 10/05 1238 AC 10/09 PO 1036 Patient Medication 1 ED ONE ONE 10/09 1400 DC Teaching ED 10/09 1401 Prednisone 40 MG DAILY 10/09 0900 AC 10/09 PO 0934 Vital Signs & I&O Last 24 Hrs of Vitals and I&O: Vital Signs Date Time Temp Pulse Resp B/P B/P Pulse O2 O2 Flow FiO2 Mean Ox Delivery Rate 10/09 1401 97.0 87 18 122/60 95 Room Air 10/09 1036 98.5 68 18 156/80 10/09 0823 94 Room Air 10/09 0620 98.5 68 18 156/80 95 Room Air 10/08 2205 97.8 70 19 160/70 95 10/08 1909 95 Room Air Intake & Output 10/09 1600 10/09 0800 10/09 0000 Intake Total 250 250 Output Total 400 Balance -400 250 250 Intake, IV 10 10 Intake, Oral 240 240 Number 1 0 Bowel Movements Output, Urine 400 Patient 173 lb Weight Exam Other Physical Findings: Generally - Awake, alert and comfortable without distress Head and neck - on room air Cardiovascular - S1, S2, no murmurs, rubs or gallops Lungs - improved rhonchi Abdomen - Bowel sounds positive, soft, non-tender Extremities - without edema Results Last 24 Hrs of Lab Results: Laboratory Tests 10/09/17 0715: Anion Gap 5, Estimated GFR > 60, BUN/Creatinine Ratio 22.9, CBC w Diff NO MAN DIFF REQ, RBC 4.20, MCV 97.6, MCH 32.6 H, MCHC 33.4, RDW 14.1, MPV 10.2, Gran % 67.9, Lymphocytes % 21.4, Monocytes % 9.3, Eosinophils % 1.0, Basophils % 0.4, Absolute Granulocytes 4.0, Absolute Lymphocytes 1.3, Absolute Monocytes 0.5, Absolute Eosinophils 0.1, Absolute Basophils 0 Impression/Plan Impression/Plan Impression/Plan: Impression 86 year old woman * acute bronchitis with likely post-infectious/inflammatory reactive airways disease * atelectasis, with hx of RML bleb and mild scarring * history of environmental exposures to wood pulp/saw dust/truck fumes/second hand smoke Plan -prednisone 40mg x 2 days, 30x2, 20x2, 10x2 then stop -symbicort 160/4.5 2 puffs bid with rinsing of the mouth - discharge on symbicort -continue trc/nebs -keep off ipratropium - patient had a questionable rash to spiriva -will require outpatient PFTs DC planning - PT/OOB - assess home care needs vs STR DVT prophylaxis at all times
== END 2017-10-09 15:37 | disposition home health service (06) | DRG 191 ==
LOC: ERH 09:40 → ERHI 11:55 → 2NA 11:55 → ENRESERV 12:35 → ENTRNSPT 13:39 → EDTRNSPTSTS 13:40 → EDTRNSPT 13:40 → 2NA 13:51 → CMPTRNSPT 14:26 → 2NA 17:03 → ENPENDDIS 10-09 14:48 → DELTRNSPT 10-09 15:25 → ENTRNSPT 10-09 15:26 → CMPTRNSPT 10-09 15:37 → 2NA 10-09 15:37
PROVIDERS: Internal Medicine; Physician Assistant Medical; Student in an Organized Health Care Education/Training Program
DX: J44.1 Chronic obstructive pulmonary disease with (acute) exacerbation (principal); E87.1 Hypo-osmolality and hyponatremia; I10 Essential (primary) hypertension; K21.9 Gastro-esophageal reflux disease without esophagitis; E03.9 Hypothyroidism, unspecified; R32 Unspecified urinary incontinence; J40 Bronchitis, not specified as acute or chronic; M79.89 Other specified soft tissue disorders; E78.5 Hyperlipidemia, unspecified; K58.9 Irritable bowel syndrome, unspecified; Z88.8 Allergy status to other drugs, medicaments and biological substances
CPT/HCPCS: 2NASP; 36592; 71045; 82436; 87040; 87804; 87804-59; 93005; 93010; 93970; 96365; 96366; 96375; 97116-GO; 97161-GP; 97530-GO; J0456; J1650; J2920; J2930; J3490; J7040